=== PATIENT | female | born 1935 | race Caucasian/White ===

== ENCOUNTER 2016-06-24 10:46 | Outpatient (CLI) | payer MEDICARE ==
[~2016-06-24] VITALS: Ht 162.6 cm; Wt 76.8 kg
--- NOTE | ~2016-06-24 | HEMODYNAMI ---
PATIENT:CLYDE ANDERSON MEDICAL RECORD: [id number] : 39 LOCATION:[facility] ADMISSION DATE: 06/24/16 Generatedon:06/24/201615:53 Patient name: CLYDE ANDERSON Patient #: [id number] SSN: [id number] : 1935 Date of study: 06/24/2016 Page: Of Hemodynamic Procedure Report Patient Data Patient Demographics Procedure consent was obtained First Name: CLYDE Gender: Female Last Name: JUSTIN : 1935 Middle Initial: ADELA Age: 80 year(s) Patient #: [id number] Race: Ethnicity: or SSN: [id number] Additional ID: [id number] Contact details Address: [address] [place] [address] [facility] State: [place] City: [place] Zip code: [address] Admission Admission Data Admission Date: 06/24/2016 Admission Time: 10:46 Arrival Date: 06/24/2016 Arrival Time: 12:30 Admit Source: Other Insurance Payor: Medicare Height (in.): 64 BSA: 1.83 (m2) Height (cm.): 162.56 BMI: 29.18 (kg/m2) Weight (lbs.): 170 Weight (kg.): 77.11 Lab Results Lab Result Date: 06/24/2016 Lab Result Time: 0:00 Biochemistry Name Units Result Min Max BUN mg/dl 26 --(----)-* 7 18 Creatinine mg/dl 1.2 --(---*)-- 0.6 1.3 CBC Name Units Result Min Max Hemoglobin g/dl 14.8 --(-*--)-- 13.5 17.5 Procedure Procedure Types Cath Procedure Diagnostic Procedure [facility] w/Coronaries PCI Procedure Coronary Stent Initial Miscellaneous Procedures Moderate Sedation up to 15 minutes Procedure Description Procedure Date Procedure Date: 06/24/2016 Procedure Start Time: 15:34 Procedure End Time: 15:48 Procedure Staff Name Function Jostin Rosas MD Performing Physician Yanet Robles RT Scrub Deanna Otoole RN Nurse Scarlet Hooker RT Monitor Indication Angina Procedure Data Cath Procedure Fluoroscopy Diagnostic fluoroscopy Total fluoroscopy Time: 2.6 time: 2.6 min min Diagnostic fluoroscopy Total fluoroscopy dose: 458 dose: 458 mGy mGy Contrast Material Contrast Material Type Amount (ml) Isovue 370 82 Entry Location Entry Primary Successful Side Size Upsize Upsize Entry Closure Succes sful Closure Location (Fr) 1 (Fr) 2 (Fr) Remarks Device Remarks Femoral Right 5 Fr 6 Fr Vascade artery Short Closure System Estimated blood loss: 5 ml Diagnostic catheters Device Type Used For End Catheter Placement Cordis 5Fr Pigtail Multi-vessel Catheter (MP) Angiography Cordis 5Fr JL 4.0 Left Coronary Catheter (MP) Angiography Cordis 5Fr 3DRC Catheter Right Coronary (MP) Angiography Procedure Complications No complications Procedure Medications Medication Administration Route Dosage Oxygen NC 2 l/min Heparin Flush Bag added to field 2 bags (1000units/500ml NS) Lidocaine 2% added to field 20 Benadryl I.V. 50 mg Versed I.V. 1 mg Fentanyl I.V. 50 mcg Versed I.V. 1 mg Fentanyl I.V. 50 mcg Heparin Bolus I.V. 4000 units Hemodynamics Rest BSA: 1.83 (m2) HGB: 14.8 (g/dl) O2 Consumption: Estimated: 165.66 (ml/min) O2 Co nsumption indexed: Estimated:90.52 (ml/min/m) Heart Rate: 71 (bpm) Pressure Samples Time Site Value (mmHg) Purpose Heart Use Rate(bpm) 15:37 LV 103/29,37 Snapshot 70 Snapshots Pre Cath Intra NCS Post Cath Vital Signs Time Heart Resp SPO2 NIBP (mmHg) Rhythm Pain Sedation Rate (ipm) (%) Status Level (bpm) 15:30:48 70 16 100 134/69(114) NSR 0 (11) 10(A) , No pain 15:35:03 69 19 100 123/61(95) NSR 0 (11) 10(A) , No pain 15:39:11 68 16 86 126/69(106) NSR 0 (11) 9(A) , No pain 15:43:23 69 16 98 128/63(100) NSR 0 (11) 9(A) , No pain 15:47:37 70 16 98 122/60(96) NSR 0 (11) 9(A) , No pain Medications Time Medication Route Dose Verified Delivered Reason Notes Effectiveness by by 15:31:18 Oxygen NC 2 Jostin Deanna Per physician l/min Ralph Otoole RN 15:31:24 Heparin Flush added 2 Jostin Jostin used for Bag to bags Ralph Rosas MD procedure (1000units/500ml field NS) 15:31:30 Lidocaine 2% added 20ml Jostin Jostin used for to vial Ralph Rosas MD procedure field 15:31:37 Benadryl I.V. 50 mg Jostin Deanna Per physician Ralph Otoole RN 15:33:44 Versed I.V. 1 mg Jostin Deanna for sedation Ralph Otoole RN 15:33:49 Fentanyl I.V. 50 Jostin Deanna for sedation mcg Ralph Otoole RN 15:36:24 Versed I.V. 1 mg Jostin Deanna for sedation Ralph Otoole RN 15:36:26 Fentanyl I.V. 50 Jostin Deanna for sedation mcg Ralph Otoole RN 15:42:25 Heparin Bolus I.V. 4000 Jostin Deanna for dose units Ralph Otoole RN anticoagulation verified [facility] dr rosas Procedure Log Time Note 15:10:52 Deanna Otoole RN sent for patient. Start room use. 15:19:17 Informed consent obtained and on chart 15:20:05 Diagnostic Cath Status : Elective 15:21:39 Indication : Angina 15:22:06 Time tracking: Regular hours 15:22:14 Plan of Care:Hemodynamics will remain stable., Cardiac rhythm will remain stable., Comfort level will be maintained., Respiratory function will remain adequate., Patient/ family verbilizes understanding of procedure., Procedure tolerated without complication., Recovers from procedure without complications.. 15:22:28 Patient received from Outpatients to CCL 1 Alert and oriented. Tansferred to table in Supine position. 15:22:29 Warm blankets applied, and radha hugger turned on for patient comfort. 15:22:30 Correct patient and procedure confirmed by team. 15:22:30 ECG and BP/O2 sat monitors applied to patient. 15:29:40 Vital chart was started 15:30:21 Baseline sample Acquired. 15:30:33 H&P Date Dictated: 06/23/2016 Within 30 days and on chart., H&P Addendum completed by physician on day of procedure. (MUST COMPLETE FOR ALL OUTPATIENTS). 15:30:35 Pre-procedure instructions explained to patient. 15:30:35 Pre-op teaching completed and patient verbalized understanding. 15:30:36 Family in waiting room. 15:30:37 Patient NPO since Midnight. 15:31:06 Is the patient allergic to Iodine/contrast media? No. 15:31:07 Was the patient premedicated? No 15:31:08 Is patient on blood thinner?Yes 15:31:11 ACC The patient was administered the following blood thiners within the last 24 hours: ACCPlavix 15:31:14 Patient diabetic? No. 15:31:18 Oxygen 2 l/min NC was given by Deanna Otoole RN; Per physician; 15:31:20 Previous problem with sedation/anesthesia? No ? 15:31:22 Snore? No 15:31:23 Sleep apnea? No 15:31:24 Heparin Flush Bag (1000units/500ml NS) 2 bags added to field was given by Jostin Rosas MD; used for procedure; 15:31:24 Deviated septum? No 15:31:25 Opens mouth fully? Yes 15:31:26 Sticks out tongue? Yes 15:31:28 Airway obstruction? No ? 15:31:30 Lidocaine 2% 20ml vial added to field was given by Jostin Rosas MD; used for procedure; 15:31:30 Dentures? No ? 15:31:35 Pre procedure: right dorsailis pedis pulse 1+ Palpable, but thready & weak; easily obliterated 15:31:37 Benadryl 50 mg I.V. was given by Deanna Otoole RN; Per physician; 15:31:39 Patient pain scale 0/10 ?. 15:31:51 IV patent on arrival in left forearm with 0.9% NaCl at [facility]. 15:33:17 Lab Result : BUN 26 mg/dl 15:33:17 Lab Result : Creatinine 1.2 mg/dl 15:33:17 Lab Result : Hemoglobin 14.8 g/dl 15:33: Lab results completed and on chart. 15:33: Right groin area was prepped with chlora-prep and draped in sterile fashion 15:: Alarms reviewed by R. N. 15:: Sharps counted by scrub and verified by R.N. 15:33: Physician arrived 15:: --------ALL STOP TIME OUT------ 15:33: Final Timeout: patient, procedure, and site verified with staff and physician. All members of the team are in agreement. 15:33:31 Right groin site verified by team. 15:33:34 Physical assessment completed. ASA score P 2 - A patient with mild systemic disease as per Jostin Rosas MD. 15:33:37 Sedation plan: IV Moderate Sedation Versed, Fentanyl 15:33:41 Use device set Femoral Dx 15:33:42 Acist Syringe opened to sterile field. 15:33:43 Bag Decanter opened to sterile field. 15:33:43 Cardinal Cath Pack opened to sterile field. 15:33:44 Versed 1 mg I.V. was given by Deanna Otoole RN; for sedation; 15:33:44 Terumo 5Fr [place] Sheath opened to sterile field. 15:33:44 St Sharad 260cm J .035 wire opened to sterile field. 15:33:45 Acist Hand Control opened to sterile field. 15:33:45 Acist Manifold opened to sterile field. 15:33:46 Cordis Infinity 5Fr Multipack catheter opened to sterile field. 15:33:46 Tegaderm 4 x 4 opened to sterile field. 15:33:49 Fentanyl 50 mcg I.V. was given by Deanna Otoole RN; for sedation; 15:33:51 Procedure started. 15:33:51 Full Disclosure recording started 15:34:48 Local anesthetic to right femoral artery with Lidocaine 2% by Jostin Rosas MD.INITIAL ACCESS ONLY 15:35:47 A 5 Fr sheath was inserted into the Right Femoral artery 15:36:24 Versed 1 mg I.V. was given by Deanna Otoole RN; for sedation; 15:36:26 Fentanyl 50 mcg I.V. was given by Deanna Otoole RN; for sedation; 15:36:37 A Cordis 5Fr Pigtail Catheter (MP) was advanced over the wire and used for Multi-vessel Angiography. 15:37:08 LV hemodynamics recorded. 15:37:10 LV gram done using MARR 15:37:13 Injector settings: Ml/sec: 5, Volume: 15, 15:37:25 EF : 40 % 15:37:31 Catheter removed. 15:37:36 A Cordis 5Fr JL 4.0 Catheter (MP) was advanced over the wire and used for Left Coronary Angiography. 15:38:17 LCA angiography performed. 15:38:20 Injector settings: Ml/sec: 3, Volume: 6, 15:38:30 Patient Height : 162.56 inches 15:38:33 Patient Weight : 77.11 lbs 15:38:33 Admit Source: Other 15:38:39 Arrival Date: 06/24/2016 12:30:00 PM 15:38:48 Insurance Payor : Medicare 15:39:22 Catheter removed. 15:39:32 A Cordis 5Fr 3DRC Catheter (MP) was advanced over the wire and used for Right Coronary Angiography. 15:39:49 RCA angiography performed. 15:39:52 Injector settings: Ml/sec: 3, Volume: 6, 15:40:02 Catheter removed. 15:40:34 Medtronic Launcher 6Fr 3DRC guide catheter opened to sterile field. 15:40:35 Cerrato Whisper J 300cm 0.014 guide wire opened to sterile field. 15:40:36 emere BasixCompak Inflation Kit opened to sterile field. 15:40:36 Terumo 6Fr [place] Sheath opened to sterile field. 15:41:01 Sheath upsized to a 6 Fr Short. 15:41:08 6 Fr 3drc guide catheter was inserted over the wire 15:41:17 whisper wire advanced. 15:42:25 Heparin Bolus 4000 units I.V. was given by Deanna Otoole RN; for anticoagulation; dose verified [facility] rosas 15:44:29 Inflation Number: 1 A Promus Premier OTW 3.0 x 24 stent was prepped and advanced across the Mid RCA. The stent was deployed at 19 JAZIEL for 0:10 (min:sec). 15:45:16 Stent catheter was removed intact over wire. 15:45:16 Wire removed. 15:45:16 Guide catheter removed. 15:45:54 Vascade 6/7 Fr Closure Device opened to sterile field. 15:46:05 Sheath removed intact; hemostasis achieved with Vascade Closure System to the Right Femoral artery. 15:46:06 Procedure ended.(Physican Out) 15:47:00 Fluoroscopy time 02.60 minutes. 15:47:05 Fluoroscopy dose: 458 mGy 15:47:05 Flurop Dose total: 458 15:47:08 Contrast amount:Isovue 370 82ml. 15:47:09 Sharps counted by scrub and verified by R.N. 15:47:10 Insertion/operative site no bleeding no hematoma. 15:47:14 Post-op/insertion site Right Femoral artery dressed using a 4 x 4 and Tegaderm. 15:47:17 Post right femoral artery:stable 15:47:21 Post procedure rhythm: unchanged. 15:47:23 Estimated blood loss: 5 ml 15:47:25 Post procedure instruction explained to patient.Patient verbalizes understanding. 15:47:25 Patient needs reinforcement of post procedure teaching. 15:48:03 Procedure type changed to Cath procedure, Diagnostic procedure, LHC, LHC w/Coronaries, PCI procedure, Coronary Stent Initial, Miscellaneous Procedures, Moderate Sedation up to 15 minutes 15:48:04 Procedure and supply charges have been captured, reviewed, submitted and are correct. 15:48:08 Procedure Complication : No complications 15:48:11 Vital chart was stopped 15:48:12 See physician's report for complete and final results. 15:48:14 Report given to Outpatients. 15:48:17 Patient transfered to Outpatients with Stretcher. 15:48:19 Procedure ended. 15:48:19 Full Disclosure recording stopped 15:48:45 ACC-PCI Only Patient was given prescriptions, or instructed by Jostin Rosas MD to start/continue the following medications upon discharge: Plavix 15:48:46 End room use (Document Last) Intervention Summary Intervention Notes Time ActionType Lesion and Equipment Action# Pressure Duration Attributes Used 15:44:29 Place stent Mid RCA Promus 1 19 00:10 Premier OTW 3.0 x 24 stent Device Usage Item Name Manufacture Quantity Catalog Number Hospital Part Current Mini mal Lot# / Charge Number Stock Stock Serial# Code Acist Acist 1 [id number] 014347 006542 407730 20 Syringe Medical Systems Inc Bag Microtek 1 2002S 048579 22420 517695 5 Decanter Medical Inc. Cardinal Cardinal 1 [id number] 077187 60727 205817 5 Cath Pack Health Terumo 5Fr Terumo 1 [id number] 491936 141340 985903 [address] Sharad 1 246328 574487 120095 678749 30 260cm J .035 wire Acist Hand Acist 1 33394 055075 892598 080584 5 Control Medical Systems Inc Acist Acist 1 31007 004596 908756 783919 5 Manifold Medical Systems Inc Cordis Cardinal 1 [id number] 938788 81487 240203 30 Infinity Health 5Fr Multipack catheter Tegaderm 4 3M 1 1626W 740569 966707 542567 5 x 4 Cordis 5Fr Cardinal 1 310303 5 Pigtail Health Catheter (MP) Cordis 5Fr Cardinal 1 302627 5 JL 4.0 Health Catheter (MP) Cordis 5Fr Cardinal 1 963178 5 3DRC Health Catheter (MP) Medtronic Medtronic 1 [id number] 295088 439636 765174 1 Launcher 6Fr 3DRC guide catheter Cerrato Cerrato 1 [id number] 407165 779414 946604 5 Whisper J Vascular 300cm 0.014 guide wire [facility] 1 KV0055 203519 721613 103968 15 BasixCompak Medical Inflation Kit Terumo 6Fr Terumo 1 [id number] 047372 527319 731166 40 [place] Sheath Promus Collins 1 [id number] 957767 891632 5 [id number] [facility] Scientific 3.0 x 24 stent Vascade 6/7 Cardiva 1 [id number] 705769 898809 577282 5 Fr Closure Medical, Device Inc. Signature Audit Cartwright Stage Time Signature Unsigned Intra-Procedure 06/24/2016 Scarlet Hooker 3:53:39 PM RT(R) Signatures Monitor : Scarlet Hooker RT Signature : Date : Time : [facility] [address] [place] [address]
[~2016-06-24 10:46] MED LIST: AMBIEN10 MG PO; ARBINOXA4 MG/5 ML; BAYER CHEWABLE81 MG PO; BEPREVE10 ML; BEPREVE10 ML EACH EYE; BETAPACE 80 MG80 MG PO; COLACE100 MG PO; CORDARONE200 MG PO; COUMADIN5 MG PO; COUMADIN6 MG PO; ELAVIL25 MG; LANOXIN125 MCG PO; LEVAQUIN500 MG PO; LOPRESSOR50 MG PO; LORTAB 5/500 TA1 TA2 PO; MILK OF MAGNESI30 ML PO; MOBIC7.5 MG PO; MS CONTIN15 MG PO; NARCAN INJ0.4 MG/ML IV; NEURONTIN 300300 MG PO; NORCO 10/325 TA1 TA1 PO; ONDANSETRON4 MG/2 M3 IV; PALGIC; PALGIC PO; PLAVIX75 MG PO; TYLENOL325 MG PO; ZOCOR20 MG PO; ZOFRAN4 MG PO
[2016-06-24 12:51] LABS: BASOPHILS 0.3 % (0.0-2.0); EOSINOPHILS 9.3 % (0-7); HEMATOCRIT 43.7 % (36.0-48.0); HEMOGLOBIN 14.8 g/dL (12-16); IMMATURE GRANULOCYTES 0.3 % (0-5); LYMPHOCYTES 27.9 % (15-50); MCH 30.7 pg (26.0-34.0); MCHC 33.9 g/dL (31.0-37.0); MCV 90.7 fL (80.0-100.0); NEUTROPHILS 51.2 % (40-80); PLATELET COUNT 322 10x3/uL (130-400); RBC 4.82 10x6/uL (4.00-5.40); RDW 13.6 % (11.5-14.5)
[2016-06-24 13:02] LABS: ANION GAP 14.5 mmol/L (8-16); CALCIUM 9.4 mg/dL (8.5-10.1); CARBON DIOXIDE 29.4 mmol/L (21.0-32.0); CREATININE - SERUM 1.2 mg/dL (0.6-1.3); POTASSIUM - SERUM 3.9 mmol/L (3.5-5.1)
[2016-06-24] MEDS ORDERED: RYTHMOL SR225 MG PO (13:47)
[2016-06-24] MEDS ORDERED: PLAVIX75 MG PO (13:48)
[2016-06-24] MEDS ORDERED: HYDROCHLOROTH12.5 M1 PO (13:49)
[2016-06-24 13:55] VITALS: BP 147/75; Ht 162.6 cm; Wt 76.8 kg
--- NOTE | 2016-06-24 18:27 | NUR ---
1600 BACK FROM HEART CATH STENT,VERY DROWSY RESP NONLABORED O2 TO 2L N/C, RT GROIN DRESSING C/D/I PPX2 WEAK RT.
--- NOTE | 2016-06-24 18:35 | NUR ---
1700 STILL SLEEPY RESP NONLABORED O2 2L N/C ROUSES EASILY.
--- NOTE | 2016-06-24 18:43 | NUR ---
1800 WAKING UP RESP NONLABORED. ASSOSTED WITH SANDWICH, AND REMINDED TO KEEP RT LEG STRAIGHT.
--- NOTE | 2016-06-24 20:21 | NUR ---
1910 RESTING BUT TALKS SOME RESP NONLABORED. RT GROIN NO BLEEDING.
--- NOTE | 2016-06-24 20:25 | NUR ---
1999 IV DCD CATHETER INTACT. WENT OVER DISCHARGE INSTRUCTIONS. UP TO THE BR WITH ASSISTANCE AND VOIDED. SCTRIPT GIVEN, WENT OVER FOLLOWUP APPOINTMENT, POST CATH INSTRUCTIONS GONE OVER AND VERBALLY UNDERSTANDS.
--- NOTE | 2016-06-24 20:26 | NUR ---
2024 TO HOME VIA W/C WITH SPOUSE.
--- NOTE | 2016-06-30 13:59 | OP ---
PATIENT NAME: CLYDE ANDERSON MEDICAL RECORD: [id number] :39 LOCATION:D.CAT ADMISSION DATE: SURGEON: WADE WOODWARD MD DATE OF OPERATION: 06/24/2016 PROCEDURES: 1. PTCA stent RCA. 2. Left heart catheterization. 3. Selective coronary angiography. 4. Left ventriculogram. INDICATION: Angina and coronary artery disease. PROCEDURE IN DETAIL: After informed consent was obtained and after a detailed explanation of the risks, benefits as well as alternative therapies, the patient elected to proceed with angiogram and angioplasty. The right femoral area was prepped and draped in normal sterile fashion. The right femoral artery was cannulated via modified Seldinger technique with placement of 6-Setswana sheath. All catheters exchanged through this sheath. FINDINGS: The left ventriculogram was performed in the standard 30-degree MARR view reveals global hypokinesis throughout all segments. Overall ejection fraction 40%. SELECTIVE CORONARY ANGIOGRAPHY: 1. Left main has no significant angiographic disease. 2. Left anterior descending has moderate irregularities, but no flow-limiting stenosis. Previously placed stents are widely patent. 3. Left circumflex shows moderate irregularities, but no flow-limiting stenosis. 4. The right coronary has previously placed stents. There is up to 75% in-stent restenosis in the mid vessel. PTCA STENT OF THE RIGHT CORONARY: The stent used was 3.0 x 24 mm Promus taken to 19 atmospheres. Result was 0% residual stenosis. OVERALL IMPRESSION: Successful percutaneous transluminal coronary angioplasty stent of the right coronary artery for in-stent restenosis up to 75% to 0% residual stenosis. TRANSINT:[id number] Voice Confirmation ID: [id number] DOCUMENT ID: [id number] WADE WOODWARD MD at 1359 CC: [id number] DICTATION DATE: 06/24/16 1548 POSTER: 06/24/162023 [facility] CLI 06/24/[address] [address]
== END 2016-06-24 20:25 | disposition home or self-care (01) ==
LOC: D.CATH 10:46
PROVIDERS: Internal Medicine Interventional Cardiology
DX: I25.119 Atherosclerotic heart disease of native coronary artery with unspecified angina pectoris (principal); T82.855A Stenosis of coronary artery stent, initial encounter

== ENCOUNTER 2018-04-04 13:58 | Observation (INO) | payer MEDICARE ==
[~2018-04-04] VITALS: Ht 162.6 cm; Wt 69.5 kg
--- NOTE | ~2018-04-04 | MORECARE ---
CASE MANAGEMENT DISCHARGE SUMMARY PATIENT: CLYDE ANDERSON UNIT: [id number] ADM DATE: 04/04/18 AGE: 82 : 39 SEX: F ROOM/BED: D.2121 AUTHOR: MANNY THOMAS PHYSICIAN: REFERRING PHYSICIAN: MAAME CASILLAS MD DATE OF SERVICE: 04/06/18 Discharge Plan Patient Name: CLYDE ANDERSON Facility: [facility]:[place] : 1935 Planned Disposition: Home Anticipated Discharge Date: 04/06/18 Discharge Date: Expected LOS: 2 Initial Reviewer: [email or web address] Initial Review Date: 04/06/2018 Generated: 04/06/18 6:30 pm Coverage Notice Reviewer: [email or web address] Elsie Mcbride Notice Issued Date-Time: 04/05/2018 17:30 Notice Type: Medicare Outpatient Observation Notice Notice Delivered To: Patient 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 ANETTE ANDERSON SIGNED THE CEDEÑO AT THE PATIENTS REQUEST. I ASKED FOR ANETTE'S ACTUAL NAME, AND HE STATED THAT THERE IS NO NAME, JUST TWO INITIALS. Patient Name: CLYDE ANDERSON Page [phone] at 1730 All edits/amendments must be made on the electronic document DICTATION DATE: 04/06/181729 DEVELOPMENT TECHNICAL LEAD: CRISTAL 04/06/181729 RPT#: [id number] DC DATE: STATUS: ADM IN [facility] [address] [place] [address] END OF REPORT
--- NOTE | ~2018-04-04 | OP ---
PATIENT NAME: CLYDE ANDERSON MEDICAL RECORD: [id number] :39 LOCATION:D.M2 D.2121 ADMISSION DATE:04/04/18 SURGEON: WADE WOODWARD MD DATE OF OPERATION: 04/06/2018 PROCEDURES: 1. PTCA of LAD. 2. PTCA of LAD diagonal. 3. Selective coronary angiography. INDICATION: Angina and coronary artery disease. PROCEDURE IN DETAIL: After informed consent was obtained and after a detailed description of the risks, benefits as well as alternative therapies, the patient elected to proceed with the angiogram and angioplasty. The left femoral area was prepped and draped in normal sterile fashion. Left femoral artery was cannulated via modified Seldinger technique with placement of 7-Cameroonian sheath. All catheters exchanged through this sheath. FINDINGS: The left anterior descending has previously placed stent. There is an area in the proximal aspect that appears to be greater than 70% stenosed with in-stent restenosis, this was addressed with a 3.0 balloon. There was a non-grafted diagonal that has multiple areas of 90% stenosis. Diagonal takes off at a very angulated segment and it comes off in stent struts. We were able to get a 1.5 balloon through this followed by a 2.0 balloon. We ballooned the diagonal with these, stent would not cross secondary to the stent struts being there and the extreme angulation, but it was an excellent balloon result. OVERALL IMPRESSION: Successful percutaneous transluminal coronary angioplasty of the left anterior descending and diagonal, both going from 70% to 90% initial stenosis to 0% residual. TRANSINT:[id number] Voice Confirmation ID: [id number] DOCUMENT ID: [id number] WADE WOODWARD MD at 1856 CC: [id number] DICTATION DATE: 04/06/18 1453 PLASTIC FINISHER: 04/06/18 1705 ADM IN [place] [address] [place] [address]
--- NOTE | ~2018-04-04 | CN ---
PATIENT NAME:CLYDE DE JESUS MEDICAL RECORD: [id number] : 39 LOCATION:D. D.2121 ADMIT DATE: 04/04/18 ACCOUNT: [id number] CONSULTING PHYSICIAN: WADE WOODWARD MD REFERRING PHYSICIAN: MAAME CASILLAS MD DATE OF CONSULTATION: 04/05/2018 DIAGNOSES: 1. Non-Q-wave myocardial infarction. 2. Coronary artery disease. 3. Previous percutaneous transluminal coronary angioplasty stent. 4. Paroxysmal atrial fibrillation. 5. Hyperlipidemia. HISTORY OF PRESENT ILLNESS: Mrs. De Jesus presents with chest pain and chest pain just started yesterday. She does have a history of coronary artery disease. Last cardiac intervention, 07/08. She has not had any further episodes of chest pain. Her troponin is positive for non-Q-wave myocardial infarction. Her EKG is with no acute changes. PHYSICAL EXAMINATION: GENERAL APPEARANCE: Well-nourished, well-developed, appears stated age. Level of distress, comfortable. PSYCHIATRIC: Mental status, alert, normal affect. Orientation, oriented to time, place and person. EYES: Lids and conjunctiva, noninjected. No discharge, no pallor. ENT: Lips, teeth, gums, normal dentition. Oropharynx, no cyanosis, no pallor. NECK: Carotid arteries, bilateral normal upstroke, no bruits, no thrills. JUGULAR VEINS: No jugular venous pressure or distention. CERVICAL LYMPH NODES: Nontender, nonenlarged. THYROID: Not enlarged. Nontender. No nodules. LUNGS: Respiratory effort, unlabored. CHEST: Normal curvature. No thoracic deformity. No chest wall tenderness. Percussion, resonant. Auscultation, clear. No wheezes, no rales, no rhonchi. CARDIOVASCULAR: Precordial exam, nondisplaced. No heaves or pericardial thrills. Rate and rhythm, regular. Heart sounds, normal S1, normal S2. No S3, no gallop, no rub. Systolic murmur, not heard. Diastolic murmur, not heard. EXTREMITIES: No cyanosis, no edema. Peripheral pulses, full and equal in all extremities, except as noted. No bruits appreciated. ABDOMEN: Soft, nondistended. Normal aorta. No bruit. Nontender. No masses. Liver, nontender, no hepatomegaly. Spleen, nontender, no splenomegaly. MUSCULOSKELETAL: No joint tenderness. No joint swelling. No erythema. NEUROLOGICAL: Normal gait, normal strength, normal tone. SKIN: Warm and dry. OVERALL IMPRESSION: Non-Q-wave myocardial infarction. We will proceed with coronary angiography. Further care depends upon findings of the angiography. SHE IS INTOLERANT TO STATINS and her heart rate is relatively bradycardic, hence at this time will not start a beta hao or a statin, but we will continue the aspirin and Plavix. TRANSINT:[id number] Voice Confirmation ID: [id number] DOCUMENT ID: [id number] CONSULT REPORT [id number] CLYDE DE JESUS, WADE RAUSCH at 1856 CC: [id number] DICTATION DATE: 04/05/18804 [employer] [employer] [facility]: 04/05/18822 ADM IN [place] [id number] [place] [id number]
--- NOTE | ~2018-04-04 | HEMODYNAMI ---
PATIENT:CLYDE ANDERSON MEDICAL RECORD: [id number] : 39 [facility] ADMISSION DATE: 04/04/18 Generatedon:04/06/201814:59 Patient name: CLYDE ANDERSON Patient #: [id number] SSN: [id number] : 1935 Date of study: 04/06/2018 Page: Of Hemodynamic Procedure Report Patient Data Patient Demographics Procedure consent was obtained First Name: CLYDE Gender: Female Last Name: JUSTIN : 1935 [facility] Initial: ADELA Age: 82 year(s) Patient #: [id number] Race: Ethnicity: or SSN: [id number] Additional ID: [id number] Contact details Address: [address] [place] [address] [facility] State: [place] City: [place] Zip code: [address] Admission Admission Data Admission Date: 04/04/2018 Admission Time: 16:21 Room #: D.2121 Procedure Procedure Types Cath Procedure Diagnostic Procedure Sedation Charges Moderate Sedation up to 15 minutes PCI Procedure PTCA PTCA Initial PTCA Additional Procedure Description Procedure Date Procedure Date: 04/06/2018 Procedure Start Time: 14:34 Procedure End Time: 14:52 Procedure Staff Name Function Jostin Rosas MD Performing Physician Scarlet Hooker RT Monitor Yanet Robles RT Scrub Elizabeth Sharif RN Nurse Procedure Data Cath Procedure Fluoroscopy Diagnostic fluoroscopy Total fluoroscopy Time: 7.1 time: 7.1 min min Diagnostic fluoroscopy Total fluoroscopy dose: 443 dose: 443 mGy mGy Contrast Material Contrast Material Type Amount (ml) Isovue 300 70 Entry Location Entry Primary Successful Side Size Upsize Upsize Entry Closure Succes sful Closure Location (Fr) 1 (Fr) 2 (Fr) Remarks Device Remarks Femoral Left 7 Fr Exoseal artery Short Estimated blood loss: 5 ml Procedure Complications No complications Procedure Medications Medication Administration Route Dosage Oxygen etCO2 Nasal cannula 2 l/min Lidocaine 2% added to field 20 Heparin Flush Bag added to field 2 bags (1000units/500ml NS) 0.9% NaCl I.V. 100 ml/hr Versed I.V. 1 mg Fentanyl I.V. 50 mcg Heparin Bolus I.V. 4000 units Fentanyl I.V. 50 mcg Hemodynamics Rest Heart Rate: 71 (bpm) Snapshots Pre Cath Intra NCS Post Cath Vital Signs Time Heart Resp SPO2 etCO2 NIBP (mmHg) Rhythm Pain Sedation Rate (ipm) (%) (mmHg) Status Level (bpm) 14:22:18 77 16 96 0 124/68(97) NSR 0 (11) 10(A) , No pain 14:26:34 69 20 96 0 103/59(77) NSR 0 (11) 10(A) , No pain 14:30:42 69 12 97 0 115/63(99) NSR 0 (11) 10(A) , No pain 14:34:56 69 19 96 33 110/58(88) NSR 0 (11) 9(A) , No pain 14:39:08 69 13 94 39.8 105/58(85) NSR 0 (11) 9(A) , No pain 14:43:18 69 15 93 36.8 112/54(79) NSR 0 (11) 9(A) , No pain 14:47:30 69 23 94 38.3 104/59(86) NSR 0 (11) 9(A) , No pain 14:51:38 69 11 98 0.7 124/65(104) NSR 0 (11) 10(A) , No pain Medications Time Medication Route Dose Verified Delivered Reason Notes Effectiveness by by 14:23:02 Oxygen etCO2 2 Jostin Johnson used for Nasal l/min Ralph Sharif RN procedure cannula 14:23:08 Lidocaine 2% added 20ml Jostin Frankel for local to vial Ralph Rosas MD anesthetic field 14:23:15 Heparin Flush added 2 Jostin Frankel used for Bag to bags Ralph Rosas MD procedure (1000units/500ml field NS) 14:23:23 0.9% NaCl I.V. 100 Jostinmarcus Gandaraie Per physician ml/hr Ralph Sharif RN 14:32:05 Versed I.V. 1 mg Jostin Johnson for sedation Ralph Sharif RN 14:32:12 Fentanyl I.V. 50 Jostin Johnson for sedation mcg Ralph Sharif RN 14:34:33 Heparin Bolus I.V. 4000 Jostin Johnson for verif ied units Ralph Sharif RN anticoagulation with dr rosas 14:40:00 Fentanyl I.V. 50 Jostin Johnson for sedation mcg Ralph Sharif RN Procedure Log Time Note 14:05:20 Informed consent obtained and on chart 14:05:26 Diagnostic Cath Status : Elective 14:05:56 Yanet Robles RT(R) sent for patient. Start room use. 14:05:57 Time tracking: Regular hours (M-F 7:00 - 5:00) 14:07:33 Plan of Care:Hemodynamics will remain stable., Cardiac rhythm will remain stable., Comfort level will be maintained., Respiratory function will remain adequate., Patient/ family verbilizes understanding of procedure., Procedure tolerated without complication., Recovers from procedure without complications.. 14:20:30 Patient received from Med II to CCL 2 Alert and oriented. Tansferred to table in Supine position. 14:20:31 Warm blankets applied, and radha hugger turned on for patient comfort. 14:20:32 ECG and BP/O2 sat monitors applied to patient. 14:20:33 Correct patient and procedure confirmed by team. 14:21:14 Baseline sample Acquired. 14:21:14 Vital chart was started 14:21:23 Full Disclosure recording started 14:23:02 Oxygen 2 l/min etCO2 Nasal cannula was administered by Elizabeth Sharif RN; used for procedure; 14:23:08 Lidocaine 2% 20ml vial added to field was administered by Jostin Rosas MD; for local anesthetic; 14:23:15 Heparin Flush Bag (1000units/500ml NS) 2 bags added to field was administered by Jostin Rosas MD; used for procedure; 14:23:20 Baseline sample Acquired. 14:23:23 0.9% NaCl 100 ml/hr I.V. was administered by Elizabeth Sharif RN; Per physician; 14:28:47 H&P Date Dictated: 04/06/2018 Within 30 days and on chart.. 14:28:51 Pre-procedure instructions explained to patient. 14:28:52 Pre-op teaching completed and patient verbalized understanding. 14:28:53 Family in waiting room. 14:28:55 Patient NPO since Midnight. 14:28:57 Is the patient allergic to Iodine/contrast media? No. 14::58 Was the patient premedicated? No 14:29:00 Is patient on blood thinner?Yes 14:29:03 ACC The patient was administered the following blood thiners within the last 24 hours: ACCPlavix 14:31:15 Patient diabetic? No. 14:31:18 Previous problem with sedation/anesthesia? No ? 14:31:23 Snore? No 14:31:24 Sleep apnea? No 14:31:25 Deviated septum? No 14:31:26 Opens mouth fully? Yes 14:31:27 Sticks out tongue? Yes 14:31:28 Airway obstruction? No ? 14:31:31 Dentures? No ? 14:31:34 Pre procedure: right dorsailis pedis pulse 2+ Normal; easily identifiable; not easily obliterated 14:31:36 Pre procedure: left dorsailis pedis pulse 2+ Normal; easily identifiable; not easily obliterated 14:31:38 Patient pain scale 0/10 ?. 14:31:42 IV patent on arrival in left forearm with 0.9% NaCl at [facility]. 14:31:45 Lab results completed and on chart. 14:31:49 Left groin area was prepped with chlora-prep and draped in sterile fashion 14:31:50 Alarms reviewed by R. N. 14:31:50 Sharps counted by scrub and verified by R.N. 14:31:52 Physician arrived 14:31:52 --------ALL STOP TIME OUT------ 14:31:53 Final Timeout: patient, procedure, and site verified with staff and physician. All members of the team are in agreement. 14:31:55 Left groin site verified by team. 14:31:58 Physical assessment completed. ASA score P 2 - A patient with mild systemic disease as per Jostin Rosas MD. 14:32:01 Sedation plan: IV Moderate Sedation Medication:Versed, Fentanyl 14:32:05 Versed 1 mg I.V. was administered by Elizabeth Sharif RN; for sedation; 14:32:12 Fentanyl 50 mcg I.V. was administered by Elizabeth Sharif RN; for sedation; 14:32:13 Use device set Femoral Dx 14:32:14 ACIST Syringe (07521) opened to sterile field. 14:32:14 Bag Decanter (2002S) opened to sterile field. 14:32:15 Medline Cath Pack ([id number]) opened to sterile field. 14:32:16 DIAGNOSTIC WIRE .035 260cm J wire ([id number]) opened to sterile field. 14:32:17 ACIST Hand Control (44996) opened to sterile field. 14:32:17 ACIST Manifold (31196) opened to sterile field. 14:32:22 Tegaderm 4 x 4 (1626W) opened to sterile field. 14:33:02 SHEATH 7FR [place] (LPF280) opened to sterile field. 14:33:02 INFLATOR Merit BasixCompak (OJ4560) opened to sterile field. 14:34:01 Procedure started. 14:34:05 Local anesthetic to left femerol artery with Lidocaine 2% by Jostin Rosas MD.INITIAL ACCESS ONLY 14:34:18 A 7 Fr Short sheath was inserted into the Left Femoral artery 14:34:32 GUIDE 7FR EBU 3.5 catheter ([id number]) opened to sterile field. 14:34:33 Heparin Bolus 4000 units I.V. was administered by Elizabeth Sharif RN; for anticoagulation; verified with dr rosas 14:34:40 7 Fr ebu 3.5 guide catheter was inserted over the wire 14:34:46 fielder wire advanced. 14:35:29 FIELDER XT J 300cm guide wire ([id number]) opened to sterile field. 14:37:31 Inflate balloon Inflation number: 1 A EMERGE OTW 1.5 x 15 balloon ([id number]) was prepped and advanced across the 1st Diag, then inflated to 21 JAZIEL for 0:10 (min:sec). 14:37:42 Inflation number: 2 The EMERGE OTW 1.5 x 15 balloon ([id number]) was reinflated across the 1st Diag, to 21 JAZIEL for 0:10 (min:sec). 14:37:57 Inflation number: 3 The EMERGE OTW 1.5 x 15 balloon ([id number]) was reinflated across the 1st Diag, to 21 JAZIEL for 0:10 (min:sec). 14:38:12 Inflation number: 4 The EMERGE OTW 1.5 x 15 balloon ([id number]) was reinflated across the 1st Diag, to 21 JAZIEL for 0:10 (min:sec). 14:38:35 Balloon removed over the wire. 14:38:49 Baseline sample Acquired. 14:40:00 Fentanyl 50 mcg I.V. was administered by Elizabeth Sharif RN; for sedation; 14:40:01 Inflate balloon Inflation number: 5 A EMERGE OTW 2.0 x 20 balloon ([id number]) was prepped and advanced across the 1st Diag, then inflated to 13 JAZIEL for 0:10 (min:sec). 14:40:14 Inflation number: 6 The EMERGE OTW 2.0 x 20 balloon ([id number]) was reinflated across the 1st Diag, to 13 JAZIEL for 0:10 (min:sec). 14:40:31 Inflation number: 7 The EMERGE OTW 2.0 x 20 balloon ([id number]) was reinflated across the 1st Diag, to 21 JAZIEL for 0:10 (min:sec). 14:40:48 Inflation number: 8 The EMERGE OTW 2.0 x 20 balloon ([id number]) was reinflated across the 1st Diag, to 21 JAZIEL for 0:10 (min:sec). 14:42:09 Balloon removed over the wire. 14:44:19 The FRANK RX 2.0 x 18 stent ([id number]) was advanced then removed because of failure to cross lesion 14:45:31 CHOICE PT Extra Support 182cm wire ([id number]) opened to sterile field. 14:46:10 Wire removed. 14:46:14 choice pt wire advanced. 14:47:12 Inflate balloon Inflation number: 9 A EUPHORA 3.0 x 15 Balloon ([id number]) was prepped and advanced across the 1st Diag, then inflated to 15 JAZIEL for 0:10 (min:sec). 14:47:27 Inflation number: 1 The EUPHORA 3.0 x 15 Balloon ([id number]) was reinflated across the Prox LAD, to 17 JAZIEL for 0:10 (min:sec). 14:49:04 Balloon removed over the wire. 14:49:08 Wire removed. 14:49:09 Guide catheter removed. 14:49:19 EXOSEAL 7Fr (EX700) opened to sterile field. 14:49:28 Sheath removed intact; hemostasis achieved with Exoseal to the Left Femoral artery. 14:49:30 Procedure ended.(Physican Out) 14:50:57 Fluoroscopy time 07.10 minutes. 14:51:01 Flurop Dose total: 443 14:51:01 Fluoroscopy dose: 443 mGy 14:51:05 Contrast amount:Isovue 300 70ml. 14:51:12 Sharps counted by scrub and verified by R.N. 14:51:14 Insertion/operative site no bleeding no hematoma. 14:51:16 Post-op/insertion site Left Femoral artery dressed using a 4 x 4 and Tegaderm. 14:51:20 Post left femerol artery:stable 14:51:25 Post procedure rhythm: unchanged. 14:51:28 Estimated blood loss: 5 ml 14:51:29 Post procedure instruction explained to patient.Patient verbalizes understanding. 14:51:30 Patient needs reinforcement of post procedure teaching. 14:52:06 Procedure type changed to Cath procedure, Diagnostic procedure, Sedation Charges, Moderate Sedation up to 15 minutes, PCI procedure, PTCA, PTCA Initial, PTCA Additional 14:52:07 Procedure and supply charges have been captured, reviewed, submitted and are correct. 14:52:12 Procedure Complication : No complications 14:52:14 Vital chart was stopped 14:52:14 See physician's report for complete and final results. 14:52:19 Report given to [facility]. 14:52:22 Patient transfered to [facility] with Stretcher. 14:52:24 Procedure ended. 14:52:24 Full Disclosure recording stopped 14:52:41 ACC-PCI Only Patient was given prescriptions, or instructed by Jostin Rosas MD to start/continue the following medications upon discharge: Plavix 14:52:43 End room use (Document Last) Intervention Summary Intervention Notes Time ActionType Lesion and Equipment Used Action# Pressure Duration Attributes 14:37:31 Inflate 1st Diag EMERGE OTW 1.5 1 21 00:10 balloon x 15 balloon ([id number]) 14:37:42 Reinflate 1st Diag EMERGE OTW 1.5 2 21 00:10 balloon x 15 balloon ([id number]) 14:37:57 Reinflate 1st Diag EMERGE OTW 1.5 3 21 00:10 balloon x 15 balloon ([id number]) 14:38:12 Reinflate 1st Diag EMERGE OTW 1.5 4 21 00:10 balloon x 15 balloon ([id number]) 14:40:01 Inflate 1st Diag EMERGE OTW 2.0 5 13 00:10 balloon x 20 balloon ([id number]) 14:40:14 Reinflate 1st Diag EMERGE OTW 2.0 6 13 00:10 balloon x 20 balloon ([id number]) 14:40:31 Reinflate 1st Diag EMERGE OTW 2.0 7 21 00:10 balloon x 20 balloon ([id number]) 14:40:48 Reinflate 1st Diag EMERGE OTW 2.0 8 21 00:10 balloon x 20 balloon ([id number]) 14:44:19 Discard FRANK RX 2.0 x Stent 18 stent ([id number]) 14:47:12 Inflate 1st Diag EUPHORA 3.0 x 9 15 00:10 balloon 15 Balloon ([id number]) 14:47:27 Reinflate Prox LAD EUPHORA 3.0 x 1 17 00:10 balloon 15 Balloon ([id number]) Device Usage Item Name Manufacture Quantity Catalog Number Hospital Part Current Minimal Lot# / Charge Number Stock Stock Serial# Code ACIST Syringe Acist 1 40982 005889 497369 232057 20 (10091) Medical Systems Inc Bag Decanter Microtek 1 2001S 627768 82063 830220 5 (2001S) Medical Inc. Medline Cath Medline 1 [id number] 212542 09438 875477 5 Pack ([id number]) DIAGNOSTIC St Sharad 1 512654 174974 906297 442390 30 WIRE .035 260cm J wire (049666) ACIST Hand Acist 1 66101 594463 300775 418107 5 Control Medical (83996) Systems Inc ACIST Manifold Acist 1 98013 970014 665441 124520 5 (09379) Medical Systems Inc Tegaderm 4 x 4 3M 1 1626W 569395 985974 313999 5 (1626W) SHEATH 7FR Terumo 1 ZBB621 087885 013505 200877 5 [place] (SSU486) INFLATOR Merit Merit 1 OO6221 984557 551359 653258 15 [facility] (KR1442) GUIDE 7FR EBU Medtronic 1 [id number] 575232 678124 501755 0 3.5 catheter ([id number]) FIELDER XT J Cerrato 1 [id number] 099022 304393 050418 5 300cm guide Vascular wire ([id number]) EMERGE OTW 1.5 [place] 1 [id number] 088426 951000 646939 5 [id number] x 15 balloon Scientific ([id number]) EMERGE OTW 2.0 [place] 1 [id number] 113742 145062 762734 5 [id number] x 20 balloon Scientific ([id number]) FRANK RX 2.0 x Medtronic 1 [id number] 516291 5380045 718349 5 [id number] 18 stent ([id number]) CHOICE PT [place]ahoma 1 [id number] 916995 014068 395159 5 Extra Support Scientific 182cm wire ([id number]) EUPHORA 3.0 x Medtronic 1 [id number] 698142 809673 035231 5 [id number] 15 Balloon ([id number]) EXOSEAL 7Fr Cardinal 1 EX700 031472 996940 517369 5 (EX700) Health Signature Audit [place] Stage Time Signature Unsigned Intra-Procedure 04/06/2018 Scarlet Hooker 2:59:44 PM RT(R) Signatures Monitor : Scarlet Hooker RT Signature : Date : Time : [facility] [address] [address]
--- NOTE | ~2018-04-04 | OP ---
PATIENT NAME: CLYDE ANDERSON MEDICAL RECORD: [id number] :39 LOCATION:D.M2 D.2121 ADMISSION DATE:04/04/18 SURGEON: WADE WOODWARD MD DATE OF OPERATION: 04/05/2018 PROCEDURES: 1. PTCA and stent, RCA. 2. Intravascular ultrasound. 3. Left heart catheterization. 4. Selective coronary angiography. 5. Left ventriculogram. INDICATION: Unstable angina, acute coronary syndrome. PROCEDURE IN DETAIL: After informed consent was obtained with detailed description of risks and benefits as well as alternative therapies, the patient elected to proceed with angiogram and angioplasty. The right femoral area was prepped and draped in normal sterile fashion. The right femoral artery was cannulated via modified Seldinger technique with placement of 7-Sami sheath. All catheters were exchanged through the sheath. FINDINGS: The left ventriculogram performed in standard 30-degree MARR view reveals global hypokinesis throughout all segments. Overall ejection fraction estimated at 40%. SELECTIVE CORONARY ANGIOGRAPHY: 1. Left main is with no significant angiographic disease. 2. Left anterior descending has previously placed stents. The stents are widely patent; however, there is a very large diagonal system that has 95% stenosis. 3. Left circumflex is very small and diffusely diseased, but no discrete flow-limiting stenosis. 4. Right coronary has previously placed stents. These are widely patent; however, there is a new 80% stenosis, confirmed by intravascular ultrasound proximally. PTCA AND STENT OF THE RCA: The stent used was 2.75 x 15-mm Augie, taken to 21 atmospheres. Result was 0% residual stenosis. OVERALL IMPRESSION: Successful PTCA and stent of the RCA going from 80% initial stenosis to 0% residual. PLAN: PTCA and stent of the LAD diagonal in the near future. TRANSINT:[id number] Voice Confirmation ID: [id number] DOCUMENT ID: [id number] WADE WOODWARD MD at 1856 CC: [id number] DICTATION DATE: 04/05/18 1538 TILE AND MOTTLE SUPERVISOR: 04/05/18 1909 ADM IN [facility] [address] [place] [address]
--- NOTE | ~2018-04-04 | HEMODYNAMI ---
PATIENT:CLYDE ANDERSON MEDICAL RECORD: [id number] : 39 [id number] ADMISSION DATE: 04/04/18 Generatedon:04/05/201813:50 Patient name: CLYDE ANDERSON Patient #: [id number] SSN: [id number] : 1935 Date of study: 04/05/2018 Page: Of Hemodynamic Procedure Report Patient Data Patient Demographics Procedure consent was obtained First Name: CLYDE Gender: Female Last Name: JUSTIN : 1935 [facility] Initial: ADELA Age: 82 year(s) Patient #: [id number] Race: Ethnicity: or SSN: [id number] Additional ID: [id number] Contact details Address: [address] [place] [address] [facility] State: [place] City: [place] Zip code: [address] Admission Admission Data Admission Date: 04/04/2018 Admission Time: 16:21 Room #: D.2121 Procedure Procedure Types Cath Procedure Diagnostic Procedure LHC LH w/Coronaries FFR/IVUS Intra-Coronary IVUS Initial Sedation Charges Moderate Sedation up to 30 minutes PCI Procedure Coronary Stent Coronary Stent Initial Procedure Description Procedure Date Procedure Date: 04/05/2018 Procedure Start Time: 13:17 Procedure End Time: 13:50 Procedure Staff Name Function Jostin Rosas MD Performing Physician Fifi Pinto RT Monitor Axel Tyson RN Nurse Brigido Miramontes RT Scrub Procedure Data Cath Procedure Fluoroscopy Diagnostic fluoroscopy Total fluoroscopy Time: 9.9 time: 9.9 min min Diagnostic fluoroscopy Total fluoroscopy dose: 293 dose: 293 mGy mGy Contrast Material Contrast Material Type Amount (ml) Isovue 300 115 Entry Location Entry Primary Successful Side Size Upsize Upsize Entry Closure Succes sful Closure Location (Fr) 1 (Fr) 2 (Fr) Remarks Device Remarks Femoral Right 5 Fr 6 Fr 7 Fr Exoseal artery Short Short Estimated blood loss: 10 ml Diagnostic catheters Device Type Used For End Catheter Placement MULTIPACK Pigtail 5 Fr LV Angiography catheter MULTIPACK JL 4.0 5Fr Left Coronary catheter Angiography MULTIPACK 3DRC 5Fr Right Coronary catheter Angiography Procedure Complications No complications Procedure Medications Medication Administration Route Dosage Oxygen etCO2 Nasal cannula 2 l/min Heparin Flush Bag added to field 2 bags (1000units/500ml NS) 0.9% NaCl I.V. 100 ml/hr Fentanyl I.V. 50 mcg Versed I.V. 1 mg Fentanyl I.V. 50 mcg Versed I.V. 1 mg Heparin Bolus I.V. 4000 units Hemodynamics Rest Heart Rate: 72 (bpm) Snapshots Pre Cath Intra NCS Post Cath Vital Signs Time Heart Resp SPO2 etCO2 NIBP Rhythm Pain Sedation Rate (ipm) (%) (mmHg) (mmHg) Status Level (bpm) 12:59:26 70 17 98 0 129/69(97) NSR 0 (11) 10(A) , No pain 13:03:50 70 17 94 38.3 105/65(86) NSR 0 (11) 10(A) , No pain 13:08:06 69 17 93 47.4 99/58(92) NSR 0 (11) 10(A) , No pain 13:12:20 69 17 90 40.6 100/58(79) NSR 0 (11) 10(A) , No pain 13:16:30 69 17 97 35.3 101/60(83) NSR 0 (11) 9(A) , No pain 13:20:42 70 16 97 30.8 105/54(92) NSR 0 (11) 9(A) , No pain 13:24:52 68 17 97 38.3 102/56(84) NSR 0 (11) 9(A) , No pain 13:29:04 70 16 98 39.8 95/51(76) NSR 0 (11) 9(A) , No pain 13:33:16 68 17 98 40.6 93/53(78) NSR 0 (11) 9(A) , No pain 13:37:25 69 16 98 40.6 97/57(79) NSR 0 (11) 9(A) , No pain 13:41:36 69 17 98 37.6 98/50(75) NSR 0 (11) 9(A) , No pain 13:45:48 69 17 97 40.6 98/54(81) NSR 0 (11) 9(A) , No pain 13:47:14 69 16 98 39.8 94/53(79) NSR 0 (11) 9(A) , No pain Medications Time Medication Route Dose Verified Delivered Reason Notes Effectiveness by by 13:01:45 Oxygen etCO2 2 Jostin Reyna Per physician Nasal l/min Ralph Tyson RN cannula 13:01:53 Heparin Flush added 2 Jostin Reyna used for Bag to bags Ralph Tyson RN procedure (1000units/500ml field NS) 13:02:02 0.9% NaCl I.V. 100 Jostin Garciay Per physician ml/hr Ralph Tyson RN 13:12:57 Fentanyl I.V. 50 Jostin Garciay for sedation mcg Ralph Tyson RN 13:13:04 Versed I.V. 1 mg Jostin Garciay for sedation Ralph Tyson RN 13:17:55 Fentanyl I.V. 50 Jostin Reyna for sedation mcg Ralph Tyson RN 13:18:00 Versed I.V. 1 mg Jostin Garciay for sedation Ralph Tyson RN 13:23:53 Heparin Bolus I.V. 4000 Jostin Garciay for units Ralph Tyson RN anticoagulation Procedure Log Time Note 12:31:50 Brigido Miramontes RT(R) sent for patient. Start room use. 12:41:42 Time tracking: Regular hours (M-F 7:00 - 5:00) 12:41:47 Plan of Care:Hemodynamics will remain stable., Cardiac rhythm will remain stable., Comfort level will be maintained., Respiratory function will remain adequate., Patient/ family verbilizes understanding of procedure., Procedure tolerated without complication., Recovers from procedure without complications.. 12:42:33 H&P Date Dictated: 04/05/2018 Within 30 days and on chart.. 12:42:37 Is patient on blood thinner?Yes 12:42:40 ACC The patient was administered the following blood thiners within the last 24 hours: ACCPlavix 12:48:51 Patient received from PCU to CCL 3 Alert and oriented. Tansferred to table in Supine position. 12:48:52 Warm blankets applied, and radha hugger turned on for patient comfort. 12:48:52 Correct patient and procedure confirmed by team. 12:48:54 Signed procedure consent form obtained from patient. 12:48:54 ECG and BP/O2 sat monitors applied to patient. 12:48:55 Full Disclosure recording started 12:48:58 Pre-procedure instructions explained to patient. 12:48:59 Pre-op teaching completed and patient verbalized understanding. 12:49:00 Family in patients room. 12:49:01 Patient NPO since Midnight. 12:58:14 Vital chart was started 13:00:10 Baseline sample Acquired. 13:00:15 Rhythm: paced 13:00:28 Is the patient allergic to Iodine/contrast media? No. 13:00:48 Previous problem with sedation/anesthesia? No ? 13:00:50 Snore? No 13:00:51 Sleep apnea? No 13:00:53 Deviated septum? No 13:00:53 Opens mouth fully? Yes 13:00:54 Sticks out tongue? Yes 13:00:56 Airway obstruction? No ? 13:00:58 Dentures? No ? 13:01:10 Pre procedure: right dorsailis pedis pulse 2+ Normal; easily identifiable; not easily obliterated 13:01:13 Patient pain scale 0/10 ?. 13:01:28 IV patent on arrival in right forearm with 0.9% NaCl at [facility]. 13:01:32 Lab results completed and on chart. 13:01:36 Right groin area was prepped with chlora-prep and draped in sterile fashion 13:01:36 Alarms reviewed by R. N. 13:01:37 Sharps counted by scrub and verified by R.N. 13:01:42 Use device set Femoral Dx 13:01:43 ACIST Syringe (56221) opened to sterile field. 13:01:43 Bag Decanter (2001S) opened to sterile field. 13:01:44 Medline Cath Pack ([id number]) opened to sterile field. 13:01:44 DIAGNOSTIC WIRE .035 260cm J wire (262108) opened to sterile field. 13:01:45 Oxygen 2 l/min etCO2 Nasal cannula was administered by Axel Tyson RN; Per physician; 13:01:45 ACIST Hand Control (62668) opened to sterile field. 13:01:46 ACIST Manifold (06536) opened to sterile field. 13:01:47 DIAGNOSTIC Multipack 5Fr catheter set (AO3904) opened to sterile field. 13:01:47 Tegaderm 4 x 4 (1626W) opened to sterile field. 13:01:49 SHEATH 5FR Kingfisher (PBV420) opened to sterile field. 13:01:53 Heparin Flush Bag (1000units/500ml NS) 2 bags added to field was administered by Axel Tyson RN; used for procedure; 13:02:02 0.9% NaCl 100 ml/hr I.V. was administered by Axel Tyson RN; Per physician; 13:12:24 Final Timeout: patient, procedure, and site verified with staff and physician. All members of the team are in agreement. 13:12:30 Right groin site verified by team. 13:12:33 Physical assessment completed. ASA score P 2 - A patient with mild systemic disease as per Jostin Rosas MD. 13:12:40 Sedation plan: IV Moderate Sedation Medication:Versed, Fentanyl 13:12:57 Fentanyl 50 mcg I.V. was administered by Axel Tyson RN; for sedation; 13:13:04 Versed 1 mg I.V. was administered by Axel Tyson RN; for sedation; 13:16:47 Procedure started. 13:17:06 Local anesthetic to right femoral artery with Lidocaine 2% by Jostin Rosas MD.INITIAL ACCESS ONLY 13:17:17 A 5 Fr sheath was inserted into the Right Femoral artery 13:17:43 A MULTIPACK Pigtail 5 Fr catheter was advanced over the wire and used for LV Angiography. 13:17:55 Fentanyl 50 mcg I.V. was administered by Axel Tyson RN; for sedation; 13:18:00 Versed 1 mg I.V. was administered by Axel Tyson RN; for sedation; 13:18:13 LV gram done using MARR 13:18:20 Injector settings: Ml/sec: 10, Volume: 20, 13:18:28 EF : 40 % 13:18:29 Catheter removed. 13:18:37 A MULTIPACK JL 4.0 5Fr catheter was advanced over the wire and used for Left Coronary Angiography. 13:19:48 Catheter removed. 13:19:57 A MULTIPACK 3DRC 5Fr catheter was advanced over the wire and used for Right Coronary Angiography. 13:20:06 Use device set TAU PCI 13:20:12 INFLATOR Merit BasixCompak (QZ5195) opened to sterile field. 13:21:08 Catheter removed. 13:21:11 SHEATH 6FR Kingfisher (IYK615) opened to sterile field. 13:21:23 [place] IVUS Catheter (91308F) opened to sterile field. 13:21:23 GUIDE 6FR AR 1.0 SH catheter ([id number]) opened to sterile field. 13:21:58 CHOICE PT Extra Support 182cm wire ([id number]) opened to sterile field. 13:22:08 Sheath upsized to a 6 Fr Short. 13:22:52 6 Fr AR 1.0 SH guide catheter was inserted over the wire 13:23:24 CHOICE PT ES wire advanced. 13:23:32 Procedure type changed to Cath procedure, Diagnostic procedure, LHC, C w/Coronaries, FFR/IVUS, Intra-Coronary IVUS Initial, Sedation Charges, Moderate Sedation up to 30 minutes, PCI procedure, Coronary Stent, Coronary Stent Initial 13:23:53 Heparin Bolus 4000 units I.V. was administered by Axel Tyson RN; for anticoagulation; 13:24:28 IVUS catheter advanced over wire. 13:24:38 IVUS pass to RCA lesion performed. 13:25:01 IVUS catheter removed over wire. 13:27:51 Wire removed. damaged. 13:28:00 The FRANK RX 2.75 x 15 stent ([id number]) was advanced then removed because of failure to cross lesion 13:28:01 WHISPER 190cm wire ([id number]) opened to sterile field. 13:28:17 WHISPER wire advanced. 13:30:09 Wire removed. damaged. 13:30:49 NEW WHISPER wire advanced. 13:31:22 WHISPER 190cm wire ([id number]) opened to sterile field. 13:31:53 3RD WHISPER wire advanced. 13:34:11 The FRANK RX 2.75 x 15 stent ([id number]) was advanced then removed because 13:34:52 Wire removed. 13:34:58 Guide catheter removed. 13:35:07 Sheath upsized to a 7 Fr Short. 13:35:18 SHEATH 7FR Kingfisher (INR132) opened to sterile field. 13:35:36 7 Fr AR 1.0 SH guide catheter was inserted over the wire 13:37:01 WHISPER wire advanced. 13:38:38 The EUPHORA 2.5 x 15 Balloon ([id number]) was advanced and then removed because of failure to cross lesion 13:39:07 GRAPHIX 182cm guide wire ([id number]) opened to sterile field. 13:40:31 Inflate balloon Inflation number: 1 A EUPHORA 2.5 x 15 Balloon ([id number]) was prepped and advanced across the Prox RCA, then inflated to 15 JAZIEL for 0:03 (min:sec). 13:40:45 Balloon removed over the wire. 13:42:44 Place stent Inflation Number: 2 A FRANK RX 2.75 x 15 stent ([id number]) was prepped and advanced across the Prox RCA. The stent was deployed at 17 JAZIEL for 0:04 (min:sec). 13:43:07 Stent catheter was removed intact over wire. 13:43:07 Wire removed. 13:43:08 Guide catheter removed. 13:43:22 Sheath removed intact; hemostasis achieved with Exoseal to the Right Femoral artery. 13:43:23 Procedure ended.(Physican Out) 13:43:36 Fluoroscopy time 09.90 minutes. 13:43:58 Flurop Dose total: 293 13:43:58 Fluoroscopy dose: 293 mGy 13:44:27 Contrast amount:Isovue 300 115ml. 13:44:28 Sharps counted by scrub and verified by R.N. 13:44:32 Insertion/operative site no bleeding no hematoma. 13:44:35 Post-op/insertion site Right Femoral artery dressed using a 4 x 4 and Tegaderm. 13:44:39 Post right femoral artery:stable, clean and dry 13:44:41 Post Procedure Pulses reassessed and unchanged 13:45:03 Post-procedure physical assessment completed. ASA score P 2 - A patient with mild systemic disease as per Jostin Rosas MD. 13:45:06 Post procedure rhythm: unchanged. 13:45:08 Estimated blood loss: 10 ml 13:45:10 Post procedure instruction explained to patient.Patient verbalizes understanding. 13:45:13 Patient needs reinforcement of post procedure teaching. 13:45:18 Procedure Complication : No complications 13:45:20 See physician's report for complete and final results. 13:46:10 EXOSEAL 7Fr (EX700) opened to sterile field. 13:46:34 WHISPER 190cm wire ([id number]) opened to sterile field. 13:47:34 GUIDE 7FR AR 1.0 SH catheter ([id number]) opened to sterile field. 13:50:09 Procedure and supply charges have been captured, reviewed, submitted and are correct. 13:50:12 Vital chart was stopped 13:50:14 Report given to PCU. 13:50:17 Patient transfered to PCU with Bed. 13:50:33 Procedure ended. 13:50:33 Full Disclosure recording stopped 13:50:36 End room use (Document Last) Intervention Summary Intervention Notes Time ActionType Lesion and Equipment Used Action# Pressure Duration Attributes 13:28:00 Discard FRANK RX 2.75 x Stent 15 stent ([id number]) 13:34:11 Discard FRANK RX 2.75 x Stent 15 stent ([id number]) 13:38:38 Discard EUPHORA 2.5 x Balloon 15 Balloon ([id number]) 13:40:31 Inflate Prox RCA EUPHORA 2.5 x 1 15 00:03 balloon 15 Balloon ([id number]) 13:42:44 Place stent Prox RCA FRANK RX 2.75 x 2 17 00:04 15 stent ([id number]) Device Usage Item Name Manufacture Quantity Catalog Number Hospital Part Current M inimal Lot# / Charge Number Stock Stock Serial# Code ACIST Syringe Acist 1 66413 037063 519908 267155 2 0 (02590) Medical Systems Inc Bag Decanter Microtek 1 873272 23163 921345 5 () Medical Inc. Medline Cath Medline 1 [id number] 435458 21244 452523 5 Pack ([id number]) DIAGNOSTIC St Sharad 1 600958 212946 738204 410665 3 0 WIRE .035 260cm J wire (523805) ACIST Hand Acist 1 08017 923760 737025 011759 5 Control Medical (07248) Systems Inc ACIST Manifold Acist 1 48007 571507 876836 325557 5 (39165) Medical Systems Inc DIAGNOSTIC Cardinal 1 QO5679 055551 43802 864133 3 0 Multipack 5Fr Health catheter set (NY0281) Tegaderm 4 x 4 3M 1 1626W 013446 695525 736879 5 (1626W) SHEATH 5FR Terumo 1 JGO198 550516 417152 327729 4 0 Kingfisher (AYZ512) MULTIPACK Cardinal 1 441846 5 Pigtail 5 Fr Health catheter MULTIPACK JL Cardinal 1 983231 5 4.0 5Fr Health catheter MULTIPACK 3DRC Cardinal 1 048604 5 5Fr catheter Health INFLATOR Merit Merit 1 RV5208 372353 464424 274325 1 5 TopChalks (LW3555) SHEATH 6FR Terumo 1 PWZ542 726054 936235 135989 4 0 [place] (TEK969) [place] 1 20015Q 378974 325116 435449 8 [place] IVUS Catheter (99088Y) GUIDE 6FR AR Medtronic 1 [id number] 612708 43212 516079 1 1.0 SH catheter ([id number]) CHOICE PT [place] 1 [id number] 491574 572144 565878 5 Extra Support Scientific 182cm wire ([id number]) WHISPER 190cm [place] 3 [id number] 125779 074996 786086 5 wire Vascular ([id number]) FRANK RX 2.75 x Medtronic 1 [id number] 954249 9888067 257928 5 [id number] 15 stent ([id number]) SHEATH 7FR Terumo 1 UFA297 502358 757598 315597 5 Kingfisher (ZCG651) EUPHORA 2.5 x Medtronic 1 [id number] 933844 099040 346631 5 [id number] 15 Balloon ([id number]) GRAPHIX 182cm [place] 1 [id number] 919040 247510 746105 5 guide wire Scientific ([id number]) EXOSEAL 7Fr Cardinal 1 EX700 023111 485830 426978 5 (EX700) Health GUIDE 7FR AR Medtronic 1 [id number] 847607 869761 211894 0 1.0 SH catheter ([id number]) Signature Audit [place] Stage Time Signature Unsigned Intra-Procedure 04/05/2018 Fifi 1:50:48 PM Counts RT(R) Signatures Monitor : Fifi Signature : Counts RT Date : Time : [address] [address]
[~2018-04-04 13:58] MED LIST changes: +HYDROCHLOROTH12.5 M1 PO; +RYTHMOL SR225 MG PO
[2018-04-04 14:28] VITALS: BP 99/66
[2018-04-04 14:52] LABS: BASOPHILS 0.4 % (0-2); EOSINOPHILS 5.5 % (0-7); HEMATOCRIT 41.8 % (36.0-48.0); HEMOGLOBIN 14.1 g/dL (12-16); IMMATURE GRANULOCYTES 0.1 % (0-5); LYMPHOCYTES 13.6 % (15-50); MCH 30.8 pg (26.0-34.0); MCHC 33.7 g/dL (31.0-37.0); MCV 91.3 fL (80.0-100.0); MEAN PLATELET VOLUME 9.8 fL (7.4-10.4); MONOCYTES 4.6 % (2-11); NEUTROPHILS 75.8 % (40-80); RBC 4.58 10x6/uL (4.00-5.40); RDW 13.7 % (11.5-14.5); WBC 11.2 10x3/uL (4.8-10.8)
[2018-04-04 14:53] LABS: PLATELET COUNT 231 10x3/uL (130-400)
[2018-04-04 15:08] LABS: ALKALINE PHOSPHATASE 59 U/L (46-116); ALT (SGPT) 22 U/L (10-68); BILIRUBIN - TOTAL 0.34 mg/dL (0.2-1.3); CALC OSMOLALITY 283 mosm/kg (275-300); CARBON DIOXIDE 24.5 mmol/L (21.0-32.0); CHLORIDE - SERUM 102 mmol/L (98-107); CREATININE - SERUM 1.1 mg/dL (0.6-1.3); GLUCOSE 129 mg/dL (74-106); PROTEIN - SERUM 7.7 g/dL (6.4-8.2); SODIUM 139 mmol/L (136-145); UREA NITROGEN 25 mg/dL (7-18); eGFR NON AFRICAN AMERICAN 51 mL/min (90-120)
[2018-04-04 15:12] LABS: APTT 28.1 SECONDS (22.8-39.4); INR 1.12 (0.85-1.17)
[2018-04-04 15:19] LABS: CKMB 1.4 U/L (0.0-3.6); CREATINE KINASE 90 UL (21-215); MAGNESIUM - SERUM 2.2 mg/dL (1.8-2.4)
[2018-04-04 15:23] LABS: TROPONIN-I < 0.017 ng/mL (0.000-0.060)
[2018-04-04 16:21] LABS: APPEARANCE CLEAR (CLEAR); BILIRUBIN NEGATIVE (NEGATIVE); COLOR YELLOW (YELLOW); GLUCOSE NEGATIVE (NEGATIVE); KETONE NEGATIVE (NEGATIVE); NITRITE NEGATIVE (NEGATIVE); PROTEIN NEGATIVE (NEGATIVE); UROBILINOGEN NORMAL (NORMAL)
[2018-04-04 16:51] VITALS: BP 149/78
[2018-04-04 16:56] VITALS: BP 136/64
[2018-04-04 17:24] LABS: TROPONIN-I 0.365 ng/mL (0.000-0.060)
[2018-04-04 20:00] VITALS: BP 123/53
[2018-04-04 22:19] LABS: CKMB 5.2 U/L (0.0-3.6); CREATINE KINASE 118 UL (21-215)
[2018-04-04 22:21] LABS: TROPONIN-I 2.143 ng/mL (0.000-0.060)
[2018-04-05 00:26] VITALS: BMI 26.3
[2018-04-05 00:47] VITALS: BP 99/52
[2018-04-05 04:00] VITALS: BP 98/52
[2018-04-05 05:56] LABS: CKMB 5.4 U/L (0.0-3.6); CREATINE KINASE 124 UL (21-215)
[2018-04-05 05:57] LABS: TROPONIN-I 2.556 ng/mL (0.000-0.060)
[2018-04-05 08:22] VITALS: BP 118/65
[2018-04-05 12:39] VITALS: Ht 162.6 cm; Wt 69.5 kg
[2018-04-05 13:18] VITALS: BP 118/57
[2018-04-05 17:13] VITALS: BP 115/89
[2018-04-05 20:00] VITALS: BP 126/88
[2018-04-06] VITALS: BP 117/48
[2018-04-06 04:00] VITALS: BP 114/59
[2018-04-06 05:14] LABS: BASOPHILS 0.3 % (0-2); EOSINOPHILS 7.2 % (0-7); HEMATOCRIT 39.6 % (36.0-48.0); HEMOGLOBIN 13.2 g/dL (12-16); IMMATURE GRANULOCYTES 0.1 % (0-5); LYMPHOCYTES 23.8 % (15-50); MCH 30.4 pg (26.0-34.0); MCHC 33.3 g/dL (31.0-37.0); MCV 91.2 fL (80.0-100.0); MEAN PLATELET VOLUME 9.7 fL (7.4-10.4); MONOCYTES 10.9 % (2-11); NEUTROPHILS 57.7 % (40-80); PLATELET COUNT 225 10x3/uL (130-400); RBC 4.34 10x6/uL (4.00-5.40); RDW 13.7 % (11.5-14.5); WBC 9.4 10x3/uL (4.8-10.8)
[2018-04-06 05:42] LABS: ALBUMIN 3.1 g/dL (3.4-5.0); ANION GAP 11.9 mmol/L (8-16); BILIRUBIN - TOTAL 0.27 mg/dL (0.2-1.3); CALCIUM 8.4 mg/dL (8.5-10.1); CARBON DIOXIDE 26.9 mmol/L (21.0-32.0); MAGNESIUM - SERUM 2.2 mg/dL (1.8-2.4); POTASSIUM - SERUM 3.8 mmol/L (3.5-5.1); PROTEIN - SERUM 6.7 g/dL (6.4-8.2)
[2018-04-06 09:39] VITALS: BP 116/62
[2018-04-06 11:34] VITALS: BP 107/55
[2018-04-06 16:00] VITALS: BP 114/74
[2018-04-06] MEDS ORDERED: PLAVIX75 MG PO (16:04)
[2018-04-06 17:00] VITALS: BP 120/80
== END 2018-04-06 19:27 | disposition home or self-care (01) ==
LOC: D.ER 13:58 → D.M2 16:21 → OBSVTIME 16:21 → D.EDHOLD 16:21 → D.M2 18:13 → D.SDCHOLD 04-06 08:19 → D.M2 04-06 08:20
PROVIDERS: Emergency Medicine
DX: I25.110 Atherosclerotic heart disease of native coronary artery with unstable angina pectoris (principal); I10 Essential (primary) hypertension; Z95.0 Presence of cardiac pacemaker
CPT/HCPCS: 93458; 92978; C9600 ×3

== ENCOUNTER 2018-04-21 12:12 | Emergency (ER) | payer MEDICARE ==
[2018-04-05 12:39] VITALS: Ht 162.6 cm; Wt 69.5 kg
[~2018-04-21] VITALS: Ht 162.6 cm; Wt 69.5 kg
[2018-04-21 12:33] LABS: BASOPHILS 0.5 % (0-2); EOSINOPHILS 10.8 % (0-7); HEMATOCRIT 37.4 % (36.0-48.0); HEMOGLOBIN 12.6 g/dL (12-16); IMMATURE GRANULOCYTES 0.1 % (0-5); LYMPHOCYTES 28.9 % (15-50); MCH 30.4 pg (26.0-34.0); MCHC 33.7 g/dL (31.0-37.0); MCV 90.3 fL (80.0-100.0); MEAN PLATELET VOLUME 9.4 fL (7.4-10.4); MONOCYTES 10.7 % (2-11); RBC 4.14 10x6/uL (4.00-5.40); RDW 14.2 % (11.5-14.5); WBC 7.3 10x3/uL (4.8-10.8)
[2018-04-21 12:35] LABS: PLATELET COUNT 286 10x3/uL (130-400)
[2018-04-21 12:49] LABS: ALBUMIN 3.6 g/dL (3.4-5.0); ALKALINE PHOSPHATASE 57 U/L (46-116); ALT (SGPT) 22 U/L (10-68); BILIRUBIN - TOTAL 0.47 mg/dL (0.2-1.3); CALC OSMOLALITY 282 mosm/kg (275-300); CALCIUM 9.1 mg/dL (8.5-10.1); CARBON DIOXIDE 29.1 mmol/L (21.0-32.0); CHLORIDE - SERUM 102 mmol/L (98-107); CREATININE - SERUM 1.1 mg/dL (0.6-1.3); GLUCOSE 122 mg/dL (74-106); POTASSIUM - SERUM 4.2 mmol/L (3.5-5.1); PROTEIN - SERUM 6.9 g/dL (6.4-8.2); SODIUM 140 mmol/L (136-145); UREA NITROGEN 21 mg/dL (7-18); eGFR NON AFRICAN AMERICAN 51 mL/min (90-120)
[2018-04-21 13:00] LABS: CKMB 0.7 U/L (0.0-3.6); CREATINE KINASE 53 UL (21-215)
[2018-04-21 13:01] LABS: TROPONIN-I < 0.017 ng/mL (0.000-0.060)
[2018-04-21 16:15] LABS: CKMB 0.7 U/L (0.0-3.6); CREATINE KINASE 46 UL (21-215); TROPONIN-I < 0.017 ng/mL (0.000-0.060)
[2018-04-21 17:47] VITALS: BP 116/72
== END 2018-04-21 17:51 | disposition home or self-care (01) ==
LOC: D.ER 12:12
PROVIDERS: Family Medicine
DX: S16.1XXA Strain of muscle, fascia and tendon at neck level, initial encounter (principal); X58.XXXA Exposure to other specified factors, initial encounter; Y93.89 Activity, other specified; Y92.019 Unspecified place in single-family (private) house as the place of occurrence of the external cause; I10 Essential (primary) hypertension; Z95.0 Presence of cardiac pacemaker; I25.10 Atherosclerotic heart disease of native coronary artery without angina pectoris

== ENCOUNTER → 2018-08-15 09:07 | Outpatient (CLI) | payer MEDICARE ==
[2018-04-21 12:20] VITALS: BMI 26.3
[~2018-08-15 09:07] MED LIST changes: +COLCRYS0.6 MG PO; +COREG 3.1253.125 MG PO; +GAVILAX510 GM
--- NOTE | 2018-08-17 15:03 | EC ---
PATIENT:CLYDE ANDERSON DATE OF SERVICE: 08/15/18 SEX: F MEDICAL RECORD: [id number] DATE OF : 39 [facility] AGE OF PATIENT: 82 ADMISSION DATE: 08/15/18 REFERRING PHYSICIAN: INTERPRETING PHYSICIAN: WADE ROSAS MD ECHOCARDIOGRAM REPORT ECHO CHARGES 4 ECHO COMPLETE Date: 08/15/18 CLINICAL DIAGNOSIS: A-FIB H/O CAD/PACEMAKER ECHOCARDIOGRAPHIC MEASUREMENTS (adult normal given) AC root (d.<3.7cm) 3.7 cm LV Septum d (<1.2 cm> 1.5 cm Valve Excursion 1.8 cm LV Septum (systole) 1.7 cm Left Atria (s.<4.0cm> 4.1 cm LVPW d(<1.2cm) 1.6 cm RV (d.<2.3cm) 2.3 cm LVPW (sytole) 1.9 cm LV diastole(<5.6CM) 4.9 cm MV E-F(>70mm/sec) cm LV systole 3.3 cm LVOT Diameter 1.7 cm MV exc.(>10mm) cm Est.ejection fraction (50-75%) % DOPPLER: LVIT cm/sec A 53.0 cm/sec E 120 cm/sec LA cm/sec RVSP 36.0 mmHg LVOT 90.0 cm/sec AOP1/2T m/s Asc. 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 Rosas TAPE# PACS Pericardial Effusion N DATE OF SERVICE: 08/15/2018 ECHOCARDIOGRAM DATE OF SERVICE: 08/15/2018 FINDINGS: 1. Left ventricular chamber size is mildly dilated. Left ventricular systolic function is markedly reduced, overall ejection fraction 20%. 2. Left atrium, right atrium, and right ventricle chamber sizes are mildly ECHOCARDIOGRAM REPORT [id number] CLYDE ANDERSON dilated. Left atrium measures 4.1 cm. 3. Valvular structures have normal structure and motion. 4. Doppler interrogation reveals vccm-ez-sgbbumav mitral regurgitation, mvku-do-nykpoocx tricuspid regurgitation, no other valvular insufficiency or stenosis. Pulmonary systolic pressure is estimated at 36 mmHg. 5. No evidence of pericardial effusion or left ventricular thrombus. TRANSINT:[id number] Voice Confirmation ID: [id number] DOCUMENT ID: [id number] WADE ROSAS MD at 1503 CC: [id number] DICTATION DATE: 08/15/18 1558 SUPERVISOR CURING ROOM: 08/15/18 2309 DEP CLI 08/15/[address] [address]
== END | disposition home or self-care (01) ==
LOC: D.HCCARDIO 09:07
PROVIDERS: ATTEND Internal Medicine Interventional Cardiology
DX: I25.10 Atherosclerotic heart disease of native coronary artery without angina pectoris (principal)

== ENCOUNTER → 2018-08-21 08:03 | Outpatient (CLI) | payer MEDICARE ==
[~2018-08-21] VITALS: Ht 162.6 cm; Wt 69.1 kg
--- NOTE | ~2018-08-21 | HEMODYNAMI ---
PATIENT:CLYDE ANDERSON MEDICAL RECORD: [id number] : 39 LOCATION:[facility] ADMISSION DATE: 08/21/18 Generatedon:08/21/201810:20 Patient name: CLYDE ANDERSON Patient #: [id number] SSN: [id number] : 1935 Date of study: 08/21/2018 Page: Of Hemodynamic Procedure Report Patient Data Patient Demographics Procedure consent was obtained First Name: CLYDE Gender: Female Last Name: JUSTIN : 1935 Middle Initial: ADELA Age: 83 year(s) Patient #: [id number] Race: SSN: [id number] Additional ID: [id number] Contact details Address: [address] [place] [address] [facility] State: [place] City: [place] Zip code: [address] Past Medical History Allergies Allergen Reaction Date Comments Reported Amoxicillin 08/21/2018 Statins 08/21/2018 Other allergy 08/21/2018 amiodorone, ambien, digoxin, lipitor, simvastatin, palgic d Admission Admission Data Admission Date: 08/21/2018 Admission Time: 8:03 Admit Source: Other Procedure Procedure Types Cath Procedure Diagnostic Procedure LHC LHC w/Coronaries FFR/IVUS Intra-Coronary IVUS Initial Sedation Charges Moderate Sedation up to 30 minutes PCI Procedure Coronary Stent Coronary Stent Initial Coronary Stent Additional Procedure Description Procedure Date Procedure Date: 08/21/2018 Procedure Start Time: 9:48 Procedure End Time: 10:17 Procedure Staff Name Function Jostin Rosas MD Performing Physician Figueroa Bates RT Monitor Marta Bentley RT Scrub Elizabeth Sharif RN Nurse Procedure Data Cath Procedure Fluoroscopy Diagnostic fluoroscopy Total fluoroscopy Time: 9.5 time: 9.5 min min Diagnostic fluoroscopy Total fluoroscopy dose: dose: 1061 mGy 1061 mGy Contrast Material Contrast Material Type Amount (ml) Isovue 300 79 Entry Location Entry Primary Successful Side Size Upsize Upsize Entry Closure Succes sful Closure Location (Fr) 1 (Fr) 2 (Fr) Remarks Device Remarks Femoral Right 5 Fr 6 Fr Exoseal artery Short Estimated blood loss: 10 ml Diagnostic catheters Device Type Used For End Catheter Placement MULTIPACK Pigtail 5 Fr Procedure catheter MULTIPACK JL 4.0 5Fr Procedure catheter MULTIPACK 3DRC 5Fr Procedure catheter Procedure Complications No complications Procedure Medications Medication Administration Route Dosage Oxygen etCO2 Nasal cannula 2 l/min Lidocaine 2% added to field 20 Heparin Flush Bag added to field 2 bags (1000units/500ml NS) 0.9% NaCl I.V. 100 ml/hr Versed I.V. 1 mg Fentanyl I.V. 50 mcg Heparin Bolus I.V. 4000 units Integrilin (Bolus I.V. 6.2 ml 2mg/ml) Plavix P.O. 600 mg Hemodynamics Rest Heart Rate: 87 (bpm) Pressure Samples Time Site Value (mmHg) Purpose Heart Use Rate(bpm) 9:50 LV 94/-7,14 Snapshot 70 Snapshots Pre Cath Intra NCS Post Cath Vital Signs Time Heart Resp SPO2 etCO2 NIBP (mmHg) Rhythm Pain Sedation Rate (ipm) (%) (mmHg) Status Level (bpm) 9:23:04 71 17 97 40.8 126/74(107) Paced 0 (11) 10(A) , No pain 9:27:18 69 15 98 40 115/70(105) Paced 0 (11) 10(A) , No pain 9:31:27 69 12 94 0 116/68(83) Paced 0 (11) 10(A) , No pain 9:35:38 69 14 95 0 126/68(96) Paced 0 (11) 10(A) , No pain 9:39:53 70 21 94 0 132/65(105) Paced 0 (11) 10(A) , No pain 9:44:05 69 29 96 14.3 129/82(109) Paced 0 (11) 10(A) , No pain 9:48:19 94 15 96 22.6 130/69(107) Paced 0 (11) 9(A) , No pain 9:52:35 69 17 94 3 132/69(105) Paced 0 (11) 9(A) , No pain 9:56:51 70 15 94 27.2 131/67(115) Paced 0 (11) 9(A) , No pain 10:01:03 79 12 94 43.8 138/75(107) Paced 0 (11) 9(A) , No pain 10:05:17 81 13 95 40.8 137/78(108) Paced 0 (11) 9(A) , No pain 10:09:33 78 16 96 31.7 133/75(101) Paced 0 (11) 9(A) , No pain 10:13:51 69 12 97 31.7 126/64(105) Paced 0 (11) 10(A) , No pain 10:18:03 69 17 97 41.5 136/68(107) Paced 0 (11) 10(A) , No pain Medications Time Medication Route Dose Verified Delivered Reason Notes Effectiveness by by 9:27:06 Oxygen etCO2 2 Jostin Johnson used for Nasal l/min Ralph Sharif RN procedure cannula 9:27:14 Lidocaine 2% added 20ml Jostin Frankel for local to vial Ralph Rosas MD anesthetic field 9:27:20 Heparin Flush added 2 Jostin Frankel used for Bag to bags Ralph Rosas MD procedure (1000units/500ml field NS) 9:27:28 0.9% NaCl I.V. 100 Jostin Johnson Per physician ml/hr Ralph Sharif RN 9:46:27 Versed I.V. 1 mg Jostin Johnson for sedation Ralph Sharif RN 9:46:33 Fentanyl I.V. 50 Jostin Johnson for sedation mcg Ralph Sharif RN 9:55:09 Heparin Bolus I.V. 4000 Jostin Johnson for verif ied units Ralph Sharif RN anticoagulation with dr rosas 9:57:21 Integrilin I.V. 6.2 Jostin Johnson for Waste d (Bolus 2mg/ml) ml Ralph Sharif RN antiplatelet 3.8 ml therapy of vial 10:16:41 Plavix P.O. 600 Jostin Johnson for mg Ralph Sharif RN antiplatelet therapy Procedure Log Time Note 9:06:53 Informed consent obtained and on chart 9:06:58 Admit Source: Other 9:07:12 Diagnostic Cath status Elective 9:07:14 Elizabeth Sharif RN sent for patient. Start room use. 9:07:15 Time tracking: Regular hours (M-F 7:00 - 5:00) 9:07:19 Plan of Care:Hemodynamics will remain stable., Cardiac rhythm will remain stable., Comfort level will be maintained., Respiratory function will remain adequate., Patient/ family verbilizes understanding of procedure., Procedure tolerated without complication., Recovers from procedure without complications.. 9:15:12 Patient received from Pre/Post Procedure Room to CCL 2 Alert and oriented. Tansferred to table in Supine position. 9:15:13 Warm blankets applied, and radha hugger turned on for patient comfort. 9:15:13 Correct patient and procedure confirmed by team. 9:15:14 ECG and BP/O2 sat monitors applied to patient. 9:15:15 Pre-procedure instructions explained to patient. 9:15:15 Pre-op teaching completed and patient verbalized understanding. 9:15:16 Family in waiting room. 9:15:18 Patient NPO since Midnight. 9:18:30 Full Disclosure recording started 9:18:51 H&P Date Dictated: 08/20/2018 Within 30 days and on chart., H&P Addendum completed by physician on day of procedure. (MUST COMPLETE FOR ALL OUTPATIENTS). 9:21:03 Patient allergic to Amoxicillin 9:21:15 Patient allergic to Statins 9:21:56 Patient allergic to Other allergyamiodorone, ambien, digoxin, lipitor, simvastatin, palgic d 9:22:00 Vital chart was started 9:22:17 Rhythm: paced 9:22:22 Is the patient allergic to Iodine/contrast media? No. 9:22:33 Is patient on blood thinner?No 9:22:35 Patient diabetic? No. 9:22:37 Previous problem with sedation/anesthesia? No ? 9:22:39 Snore? No 9:22:40 Sleep apnea? No 9:22:41 Deviated septum? No 9:22:42 Opens mouth fully? Yes 9:22:43 Sticks out tongue? Yes 9:22:45 Airway obstruction? No ? 9:22:55 Dentures? Yes Bottoms are out 9:22:59 Pre procedure: right dorsailis pedis pulse 1+ Palpable, but thready & weak; easily obliterated 9:23:06 Patient pain scale 0/10 ?. 9:23:16 IV patent on arrival in right forearm with 0.9% NaCl at [facility]. 9:23:18 Lab results completed and on chart. 9:23:21 Right groin area was prepped with chlora-prep and draped in sterile fashion 9:: Alarms reviewed by R. N. 9:: Sharps counted by scrub and verified by R.N. 9:23:26 Use device set Femoral Dx 9:23:27 ACIST Syringe (86756) opened to sterile field. 9:23:27 Bag Decanter (2002S) opened to sterile field. 9:23:28 Medline Cath Pack ([id number]) opened to sterile field. 9:23:28 DIAGNOSTIC WIRE .035 260cm J wire ([id number]) opened to sterile field. 9:23:31 ACIST Hand Control (50304) opened to sterile field. 9:23:32 ACIST Manifold (77714) opened to sterile field. 9:23:32 DIAGNOSTIC Multipack 5Fr catheter set (SE1476) opened to sterile field. 9:23:33 Tegaderm 4 x 4 (1626W) opened to sterile field. 9:23:34 SHEATH 5FR [place] (WAO894) opened to sterile field. 9:26:07 Baseline sample Acquired. 9:27:06 Oxygen 2 l/min etCO2 Nasal cannula was administered by Elizabeth Sharif RN; used for procedure; 9::14 Lidocaine 2% 20ml vial added to field was administered by Jostin Rosas MD; for local anesthetic; 9:27:20 Heparin Flush Bag (1000units/500ml NS) 2 bags added to field was administered by Jostin Rosas MD; used for procedure; ::28 0.9% NaCl 100 ml/hr I.V. was administered by Elizabeth Sharif RN; Per physician; 9:33:32 Zero performed for pressure channel P1 9:44:20 Physician arrived 9:44: --------ALL STOP TIME OUT------ :44:21 Final Timeout: patient, procedure, and site verified with staff and physician. All members of the team are in agreement. 9:44:25 Right groin site verified by team. 9:44:28 Maximum allowable Isovue 300 dose 300ml. Physician notified. (300ml for normal creatinines. For patients with creatinine of 1.7 or higher multiply weight(kg) x 5 divided by creatinine.) 9:44:31 Fire Safety Assessment: A--An alcohol-based skin anteseptic being used preoperatively., C--Open oxygen or nitrous oxide is being used., D--An ESU, laser, or fiber-optic light is being used. 9:44:35 Physical assessment completed. ASA score P 2 - A patient with mild systemic disease as per Jostin Rosas MD. 9:44:37 Sedation plan: IV Moderate Sedation Medication:Versed, Fentanyl 9:46:27 Versed 1 mg I.V. was administered by Elizabeth Sharif RN; for sedation; 9:46:33 Fentanyl 50 mcg I.V. was administered by Elizabeth Sharif RN; for sedation; 9:48:17 Procedure started. 9:48:20 Local anesthetic to right femoral artery with Lidocaine 2% by Jostin Rosas MD.INITIAL ACCESS ONLY 9:48:28 A 5 Fr sheath was inserted into the Right Femoral artery 9:49:49 A MULTIPACK Pigtail 5 Fr catheter was advanced over the wire and used for Procedure. 9:50:13 LV gram done using MARR 9:50:16 Injector settings: Ml/sec: 10, Volume: 20, 9:50:17 LV hemodynamics recorded. 9:50:21 EF : 30 % 9:50:23 Catheter exchanged over wire. 9:50:26 A MULTIPACK JL 4.0 5Fr catheter was advanced over the wire and used for Procedure. 9:51:22 LCA angiography performed. 9:52:15 Catheter exchanged over wire. 9:52:19 A MULTIPACK 3DRC 5Fr catheter was advanced over the wire and used for Procedure. 9:52:58 RCA angiography performed. 9:53:32 Catheter removed. 9:53:38 SHEATH 6FR [place] (GHS827) opened to sterile field. 9:53:40 Sheath upsized to a 6 Fr Short. 9:53:47 CHOICE PT Extra Support 182cm wire ([id number]) opened to sterile field. 9:53:48 INFLATOR Merit BasixCompak (QR8049) opened to sterile field. 9:53:53 Rarden Karl[place] Eagleye IVUS Catheter (68864E) opened to sterile field. 9:54:54 GUIDE 6FR 3DRC catheter ([id number]) opened to sterile field. 9:54:59 6 Fr 3DRC guide catheter was inserted over the wire 9:55:04 CHOICE PT ES wire advanced. 9:55:05 Wire advanced across lesion. 9:55:09 Heparin Bolus 4000 units I.V. was administered by Elizabeth Sharif RN; for anticoagulation; verified with dr rosas 9:56:12 Wire removed. 9:56:18 Guide Catheter removed. unable to get back-up support 9:56:24 GUIDE 6FR AR 2.0 SH catheter ([id number]) opened to sterile field. 9:56:33 6 Fr AR 2 SH guide catheter was inserted over the wire 9:57:21 Integrilin (Bolus 2mg/ml) 6.2 ml I.V. was administered by Elizabeth Sharif RN; for antiplatelet therapy; Wasted 3.8 ml of vial 9:57:50 CHOICE PT ES wire advanced. 9:57:51 Wire advanced across lesion. 9:57:54 IVUS catheter advanced over wire. 9:57:56 IVUS pass to RCA lesion performed. 9:59:26 IVUS catheter removed over wire. 10:00:38 The EUPHORA 2.5 x 10 Balloon ([id number]) was advanced and then removed because of failure to cross lesion 10:03:03 The EUPHORA 1.5 x 10 Balloon ([id number]) was advanced and then removed because of failure to cross lesion 10:03:07 Wire removed. 10:03:55 CHOICE PT Extra Support 182cm wire ([id number]) opened to sterile field. 10:04:01 CHOICE PT ES wire advanced. 10:04:23 Inflate balloon Inflation number: 1 A EUPHORA 1.5 x 10 Balloon ([id number]) was prepped and advanced across the 1st RPL, then inflated to 21 JAZIEL for 0:10 (min:sec). 10:04:26 Inflation number: 2 The EUPHORA 1.5 x 10 Balloon ([id number]) was reinflated across the 1st RPL, to 21 JAZIEL for 0:10 (min:sec). 10:04:30 Inflation number: 3 The EUPHORA 1.5 x 10 Balloon ([id number]) was reinflated across the 1st RPL, to 21 JAZIEL for 0:10 (min:sec). 10:04:49 Balloon removed over the wire. 10:05:27 Inflate balloon Inflation number: 4 A EUPHORA 2.5 x 10 Balloon ([id number]) was prepped and advanced across the 1st RPL, then inflated to 13 JAZIEL for 0:10 (min:sec). 10:05:46 Inflation number: 5 The EUPHORA 2.5 x 10 Balloon ([id number]) was reinflated across the 1st RPL, to 9 JAZIEL for 0:10 (min:sec). 10:07:09 Inflation number: 6 The EUPHORA 2.5 x 10 Balloon ([id number]) was reinflated across the 1st RPL, to 17 JAZIEL for 0:10 (min:sec). 10:07:30 Balloon removed over the wire. 10:08:44 Place stent Inflation Number: 7 A FRANK RX 2.5 x 18 stent ([id number]) was prepped and advanced across the 1st RPL. The stent was deployed at 11 JAZIEL for 0:10 (min:sec). 10:10:48 Stent catheter was removed intact over wire. 10:11:35 Place stent Inflation Number: 1 A FRANK RX 3.5 x 15 stent ([id number]) was prepped and advanced across the Prox RCA. The stent was deployed at 15 JAZIEL for 0:10 (min:sec). 10:12:01 Stent catheter was removed intact over wire. 10:12:02 Wire removed. 10:12:02 Guide catheter removed. 10:12:09 EXOSEAL 6Fr (EX600) opened to sterile field. 10:12:16 Sheath removed intact; hemostasis achieved with Exoseal to the Right Femoral artery. 10:14:10 Procedure ended.(Physican Out) 10:15:58 Fluoroscopy time 09.50 minutes. 10:16:01 Fluoroscopy dose: 1061 mGy 10:16:01 Flurop Dose total: 1061 10:16:06 Contrast amount:Isovue 300 79ml. 10:16:13 Sharps counted by scrub and verified by R.N. 10:16:16 Insertion/operative site no bleeding no hematoma. 10:16:18 Post-op/insertion site Right Femoral artery dressed using a 4 x 4 and Tegaderm. 10:16:21 Post right femoral artery:stable, soft, clean and dry 10:16:22 Post Procedure Pulses reassessed and unchanged 10:16:24 Post-procedure physical assessment completed. ASA score P 2 - A patient with mild systemic disease as per Jostin Rosas MD. 10:16:29 Post procedure rhythm: unchanged. 10:16:31 Estimated blood loss: 10 ml 10:16:33 Post procedure instruction explained to patient.Patient verbalizes understanding. 10:16:33 Patient needs reinforcement of post procedure teaching. 10:16:41 Plavix 600 mg P.O. was administered by Elizabeth Sharif RN; for antiplatelet therapy; 10:17:03 Procedure type changed to Cath procedure, Diagnostic procedure, LHC, LHC w/Coronaries, FFR/IVUS, Intra-Coronary IVUS Initial, Sedation Charges, Moderate Sedation up to 30 minutes, PCI procedure, Coronary Stent, Coronary Stent Initial, Coronary Stent Additional 10:17:41 Procedure and supply charges have been captured, reviewed, submitted and are correct. 10:17:43 Procedure Complication : No complications 10:17:45 Vital chart was stopped 10:17:45 See physician's report for complete and final results. 10:17:49 Report given to Pre/Post Procedure Room. 10:17:51 Patient transfered to Pre/Post Procedure Room with Stretcher. 10:17:53 Procedure ended. 10:17:53 Full Disclosure recording stopped 10:17:57 End room use (Document Last) Intervention Summary Intervention Notes Time ActionType Lesion and Equipment Used Action# Pressure Duration Attributes 10:00:38 Discard EUPHORA 2.5 x Balloon 10 Balloon ([id number]) 10:03:03 Discard EUPHORA 1.5 x Balloon 10 Balloon ([id number]) 10:04:23 Inflate 1st RPL EUPHORA 1.5 x 1 21 00:10 balloon 10 Balloon ([id number]) 10:04:26 Reinflate 1st RPL EUPHORA 1.5 x 2 21 00:10 balloon 10 Balloon ([id number]) 10:04:30 Reinflate 1st RPL EUPHORA 1.5 x 3 21 00:10 balloon 10 Balloon ([id number]) 10:05:27 Inflate 1st RPL EUPHORA 2.5 x 4 13 00:10 balloon 10 Balloon ([id number]) 10:05:46 Reinflate 1st RPL EUPHORA 2.5 x 5 9 00:10 balloon 10 Balloon ([id number]) 10:07:09 Reinflate 1st RPL EUPHORA 2.5 x 6 17 00:10 balloon 10 Balloon ([id number]) 10:08:44 Place stent 1st RPL FRANK RX 2.5 x 7 11 00:10 18 stent ([id number]) 10:11:35 Place stent Prox RCA FRANK RX 3.5 x 1 15 00:10 15 stent ([id number]) Device Usage Item Name Manufacture Quantity Catalog Number Hospital Part Current M inimal Lot# / Charge Number Stock Stock Serial# Code ACIST Syringe Acist 1 57438 404292 424228 481397 2 0 (84633) Medical Systems Inc Bag Decanter Microtek 1 661534 59129 492837 5 () Medical Inc. Medline Cath Medline 1 [id number] 847943 30463 683085 5 Pack ([id number]) DIAGNOSTIC St Sharad 1 194857 474150 134338 002299 3 0 WIRE .035 260cm J wire (556106) ACIST Hand Acist 1 81914 243877 446109 549972 5 Control Medical (45041) Systems Inc ACIST Manifold Acist 1 73660 506335 025582 226324 5 (04357) Medical Systems Inc DIAGNOSTIC Cardinal 1 OQ4770 648189 18036 545048 3 0 Multipack 5Fr Health catheter set (KI7782) Tegaderm 4 x 4 3M 1 1626W 257087 312122 872683 5 (1626W) SHEATH 5FR Terumo 1 BMJ749 142930 957715 456210 5 [place] (FIU407) MULTIPACK Cardinal 1 711975 5 Pigtail 5 Fr Health catheter MULTIPACK JL Cardinal 1 164658 5 4.0 5Fr Health catheter MULTIPACK 3DRC Cardinal 1 505737 5 5Fr catheter Health SHEATH 6FR Terumo 1 BDA367 543131 030417 498584 4 0 [place] (SJG737) CHOICE PT [place] 2 [id number] 639512 901879 325377 5 Extra Support Scientific 182cm wire ([id number]) INFLATOR Merit Merit 1 ZH2831 406545 762791 644089 1 5 Tasted Menu (RU7473) Rarden Rarden 1 02535H 707715 578481 208781 8 [place] Eagleye IVUS Catheter (33972R) GUIDE 6FR 3DRC Medtronic 1 [id number] 472996 386017 509507 1 catheter ([id number]) GUIDE 6FR AR Medtronic 1 [id number] 783735 81107 628819 1 2.0 SH catheter ([id number]) EUPHORA 2.5 x Medtronic 1 [id number] 359917 678886 498503 5 [id number] 10 Balloon ([id number]) EUPHORA 1.5 x Medtronic 1 [id number] 584100 351492 339904 5 [id number] 10 Balloon ([id number]) FRANK RX 2.5 x Medtronic 1 [id number] 490537 6711468 612270 5 [id number] 18 stent ([id number]) FRANK RX 3.5 x Medtronic 1 [id number] 471855 1961947 020942 5 [id number] 15 stent ([id number]) EXOSEAL 6Fr Cardinal 1 EX600 114715 952171 347072 1 0 (EX600) Health Signature Audit [place] Stage Time Signature Unsigned Intra-Procedure 08/21/2018 Figueroa Bates 10:19:53 AM RT(R) Signatures Monitor : Figueroa Bates RT Signature : Date : Time : [id number] [place] [address]
--- NOTE | ~2018-08-21 | OP ---
PATIENT NAME: CLYDE ANDERSON MEDICAL RECORD: [id number] :37 LOCATION:D.[facility] ADMISSION DATE: SURGEON: WADE WOODWARD MD DATE OF OPERATION: 08/21/2018 PROCEDURES: 1. PTCA stent RCA. 2. PTCA stent RCA PLV. 3. Intravascular ultrasound. 4. Left heart catheterization. 5. Selective coronary angiography. 6. Left ventriculogram. INDICATION: Angina and coronary artery disease. PROCEDURE IN DETAIL: After informed consent was obtained and after a detailed description of risks, benefits as well as alternative therapies, the patient elected to proceed with angiogram and angioplasty. The right femoral area was prepped and draped in normal sterile fashion. The right femoral artery was cannulated via modified Seldinger technique with placement of 6-Bulgarian sheath. All catheters exchanged through this sheath. FINDINGS: Left ventriculogram was performed in standard 30-degree MARR view, reveals global hypokinesis, ejection fraction is 30%. SELECTIVE CORONARY ANGIOGRAPHY: 1. Left main showed no significant angiographic disease. 2. Left anterior descending has 75% stenosis in the proximal vessel. 3. Left circumflex has moderate irregularities, but no flow-limiting stenosis. 4. Right coronary artery has 65% to 70% stenosis proximally, 75% stenosis at the PLV. PTCA STENT OF THE RCA AND PLV: The RCA was addressed with a 3.5 x 15 mm Augie. The PLV with a 2.5 x 18 mm Augie. Result was 0% residual stenosis. OVERALL IMPRESSION: Successful PTCA stent of the RCA and PLV going from 70% to 75% initial stenosis to 0% residual. PLAN: For PTCA stent of the LAD in the near future. TRANSINT:[id number] Voice Confirmation ID: [id number] DOCUMENT ID: [id number] WADE WOODWARD MD CC: [id number] DICTATION DATE: 08/21/18 1026 SOLAR DESIGNER/INSTALLER: 08/21/18 [id number] [place] [address]
[2018-08-21 08:33] VITALS: BP 125/75; Ht 162.6 cm; Wt 69.1 kg
[2018-08-21 08:53] LABS: BASOPHILS 0.5 % (0-2); EOSINOPHILS 8.4 % (0-7); HEMATOCRIT 43.1 % (36.0-48.0); HEMOGLOBIN 14.7 g/dL (12-16); IMMATURE GRANULOCYTES 0.1 % (0-5); LYMPHOCYTES 25.1 % (15-50); MCH 30.4 pg (26.0-34.0); MCHC 34.1 g/dL (31.0-37.0); MCV 89.2 fL (80.0-100.0); MEAN PLATELET VOLUME 9.8 fL (7.4-10.4); MONOCYTES 10.3 % (2-11); NEUTROPHILS 55.6 % (40-80); PLATELET COUNT 251 10x3/uL (130-400); RBC 4.83 10x6/uL (4.00-5.40); RDW 13.8 % (11.5-14.5); WBC 7.9 10x3/uL (4.8-10.8)
[2018-08-21 09:11] LABS: ANION GAP 11.8 mmol/L (8-16); CARBON DIOXIDE 30.9 mmol/L (21.0-32.0); CREATININE - SERUM 1.2 mg/dL (0.6-1.3); POTASSIUM - SERUM 3.7 mmol/L (3.5-5.1)
--- NOTE | 2018-08-21 10:40 | NUR ---
RECIEVED TO ROOM VIA STRETCHER FROM EMPLOYMENT SPECIALIST WITH 6 FR EXOSEAL TO R/GROIN CDI NO BLEEDING OR HEMATOMA NOTED. PATIENT CONNECTED TO MONITOR FOR OBSERVATION WITH HR PACED AT 70 BP 140/72 CHEST PAIN IS DENIED
--- NOTE | 2018-08-21 10:47 | NUR ---
6 FR EXOSEAL R/GROIN IS CDI WITH NO BLEEDING OR HEMATOMA NOTED. CHEST PAIN IS DENIED FAMILY PRESENT AT BEDSIDE.
--- NOTE | 2018-08-21 11:23 | NUR ---
6 FR EXOSEAL R/GROIN IS CDI WITH HR 70 CHEST PAIN DENIED. R/FOOT WARM TO TOUCH WITH PULSES PALPABLE
--- NOTE | 2018-08-21 11:46 | NUR ---
PATIENT RESTING QUIETLY WITH NO DISTRESS NOTED. 6 FR EXOSEAL R/GROIN IS CDI WITH VSS AND CHEST PAIN DENIED
--- NOTE | 2018-08-21 12:10 | NUR ---
6 FR EXOSEAL R/GROIN REMAINS CDI WITH NO BLEEDING. HR 70 BP 103/56. FAMILY IS AT BEDSIDE
--- NOTE | 2018-08-21 12:43 | NUR ---
PATIENT RESTING QUIETLY WITH NO DISTRESS NOTED 6 FR EXOSEAL R/GROIN IS CDI
--- NOTE | 2018-08-21 13:02 | NUR ---
6 FR EXOSEAL R/GROIN IS CDI WITH PATIENT RESTING QUIELTY NO DISTRESS NOTED. AT BEDSIDE
--- NOTE | 2018-08-21 13:24 | NUR ---
REPOSITIONED TO HOB UP 30 FOR COMFORT. 6 FR EXOSEAL R/GROIN IS CDI AND PATIENT DENIED CHEST PAIN. SANDWICH AND SODA WITH TO ASSIST
--- NOTE | 2018-08-21 14:05 | NUR ---
VERBAL AND WRITTEN DISCHARGE GONE OVER WITH PATIENT AND FAMILY. 6 FR EXOSEAL R/GROIN IS CDI. PIV REMOVED WITH DRESSING APPLIED PATIENT UP TO GET DRESSED FOR DISCHARGE HOME NO DISTRESS NOTED
--- NOTE | 2018-08-21 14:17 | NUR ---
PATIENT LEFT VIA WC TO PARKING FOR TRANSPORT HOME CHEST PAIN IS DENIED AND 6 FR EXOSEAL R/GROIN IS CDI
== END | disposition home or self-care (01) ==
LOC: D.CATH 08:03
PROVIDERS: ATTEND Internal Medicine Interventional Cardiology
DX: I25.119 Atherosclerotic heart disease of native coronary artery with unspecified angina pectoris (principal); Z01.812 Encounter for preprocedural laboratory examination
CPT/HCPCS: 93458; C9600; C9601

== ENCOUNTER 2018-08-29 09:08 | Outpatient (CLI) | payer MEDICARE ==
[~2018-08-29] VITALS: Ht 162.6 cm; Wt 69.1 kg
--- NOTE | ~2018-08-29 | HEMODYNAMI ---
PATIENT:CLYDE ANDERSON MEDICAL RECORD: [id number] : 39 LOCATION:[facility] ADMISSION DATE: 08/29/18 Generatedon:08/29/201811:09 Patient name: CLYDE ANDERSON Patient #: [id number] SSN: [id number] : 1935 Date of study: 08/29/2018 Page: Of Hemodynamic Procedure Report Patient Data Patient Demographics Procedure consent was obtained First Name: CLYDE Gender: Female Last Name: JUSTIN : 1935 [facility] Initial: ADELA Age: 83 year(s) Patient #: [id number] Race: SSN: [id number] Additional ID: [id number] Contact details Address: [address] [place] [address] [place] State: [place] City: [place] Zip code: [address] Past Medical History Allergies Allergen Reaction Date Comments Reported Amoxicillin 08/21/2018 Statins 08/21/2018 Other allergy 08/21/2018 amiodorone, ambien, digoxin, lipitor, simvastatin, palgic d Admission Admission Data Admission Date: 08/29/2018 Admission Time: 9:08 Procedure Procedure Types Cath Procedure Diagnostic Procedure FFR/IVUS Intra-Coronary IVUS Initial PCI Procedure Coronary Stent Coronary Stent Initial Procedure Description Procedure Date Procedure Date: 08/29/2018 Procedure Start Time: 10:52 Procedure End Time: 11:07 Procedure Staff Name Function Jostin Rosas MD Performing Physician Brigido Miramontes RT Monitor Axel Tyson RN Nurse Fifi Pinto RT Scrub Procedure Data Cath Procedure Fluoroscopy Diagnostic fluoroscopy Total fluoroscopy Time: 1.9 time: 1.9 min min Diagnostic fluoroscopy Total fluoroscopy dose: 78 dose: 78 mGy mGy Contrast Material Contrast Material Type Amount (ml) Isovue 300 34 Entry Location Entry Primary Successful Side Size Upsize Upsize Entry Closure Succes sful Closure Location (Fr) 1 (Fr) 2 (Fr) Remarks Device Remarks Femoral Left 6 Fr Exoseal artery Short Estimated blood loss: 10 ml Procedure Complications No complications Procedure Medications Medication Administration Route Dosage Oxygen etCO2 Nasal cannula 2 l/min Heparin Flush Bag added to field 2 bags (1000units/500ml NS) 0.9% NaCl I.V. 100 ml/hr Lidocaine 2% added to field 20 Fentanyl I.V. 50 mcg Versed I.V. 1 mg Heparin Bolus I.V. 4000 units Fentanyl I.V. 50 mcg Versed I.V. 1 mg Hemodynamics Rest Heart Rate: 70 (bpm) Pressure Samples Time Site Value (mmHg) Purpose Heart Use Rate(bpm) 10:54 AO 93/45(62) Snapshot 70 Snapshots Pre Cath Intra NCS Post Cath Vital Signs Time Heart Resp SPO2 etCO2 NIBP (mmHg) Rhythm Pain Sedation Rate (ipm) (%) (mmHg) Status Level (bpm) 10:38:06 73 17 97 0 126/74(99) NSR 0 (11) 10(A) , No pain 10:42:22 69 17 97 0 117/62(93) NSR 0 (11) 10(A) , No pain 10:46:39 69 17 97 0 118/67(96) NSR 0 (11) 10(A) , No pain 10:50:54 69 16 97 0 126/67(101) NSR 0 (11) 10(A) , No pain 10:55:09 69 16 96 0 92/55(75) NSR 0 (11) 9(A) , No pain 10:59:16 69 16 96 0 106/68(85) NSR 0 (11) 9(A) , No pain 11:03:30 69 17 97 0 107/66(88) NSR 0 (11) 9(A) , No pain 11:07:40 69 9 98 0 119/70(99) NSR 0 (11) 9(A) , No pain Medications Time Medication Route Dose Verified Delivered Reason Notes Effectiveness by by 10:44:52 Oxygen etCO2 2 Jostin Reyna Per physician Nasal l/min Ralph Tyson RN cannula 10:45:00 Heparin Flush added 2 Jostin Reyna used for Bag to bags Ralph Tyson education associate (1000units/500ml field NS) 10:45:11 0.9% NaCl I.V. 100 Jostin Reyna used for ml/hr Ralph Tyson RN procedure 10:45:20 Lidocaine 2% added 20ml Jostin Reyna used for to vial Ralph Tyson RN procedure field 10:51:52 Fentanyl I.V. 50 Jostin Reyna for sedation mcg Ralph Tyson RN 10:52:00 Versed I.V. 1 mg Jostin Reyna for sedation Ralph Tyson RN 10:53:37 Heparin Bolus I.V. 4000 Jostin Reyna for units Ralph Tyson RN anticoagulation 10:57:08 Fentanyl I.V. 50 Jostin Reyna for sedation mcg Ralph Tyson RN 10:57:15 Versed I.V. 1 mg Jostin Reyna for sedation Ralph Tyson RN Procedure Log Time Note 10:17:34 Time tracking: Regular hours (M-F 7:00 - 5:00) 10:17:38 Plan of Care:Hemodynamics will remain stable., Cardiac rhythm will remain stable., Comfort level will be maintained., Respiratory function will remain adequate., Patient/ family verbilizes understanding of procedure., Procedure tolerated without complication., Recovers from procedure without complications.. 10:20:26 Axel Tyson RN sent for patient. Start room use. 10:31:26 Patient received from Pre/Post Procedure Room to CCL 3 Alert and oriented. Tansferred to table in Supine position. 10:31:27 Warm blankets applied, and radha hugger turned on for patient comfort. 10:31:27 Correct patient and procedure confirmed by team. 10:31:28 Signed procedure consent form obtained from patient. 10:31:29 ECG and BP/O2 sat monitors applied to patient. 10:31:30 Full Disclosure recording started 10:37:00 Vital chart was started 10:44:52 Oxygen 2 l/min etCO2 Nasal cannula was administered by Axel Tyson RN; Per physician; 10:45:00 Heparin Flush Bag (1000units/500ml NS) 2 bags added to field was administered by Axel Tyson RN; used for procedure; 10:45:11 0.9% NaCl 100 ml/hr I.V. was administered by Axel Tyson RN; used for procedure; 10:45:20 Lidocaine 2% 20ml vial added to field was administered by Axel Tyson RN; used for procedure; 10:48:56 Baseline sample Acquired. 10:48:59 Rhythm: paced 10:49:08 H&P Date Dictated: 08/29/2018 New H&P dictated by physician.. 10:49:09 Pre-procedure instructions explained to patient. 10:49:09 Pre-op teaching completed and patient verbalized understanding. 10:49:11 Family in patients room. 10:49:13 Patient NPO since Midnight. 10:49:14 Is the patient allergic to Iodine/contrast media? No. 10:49:18 Is patient on blood thinner?Yes 10:49:21 ACC The patient was administered the following blood thiners within the last 24 hours: ACCPlavix 10:49:31 Patient diabetic? No. 10:49:34 Previous problem with sedation/anesthesia? No ? 10:49:36 Snore? No 10:49:37 Sleep apnea? No 10:49:38 Deviated septum? No 10:49:38 Opens mouth fully? Yes 10:49:39 Sticks out tongue? Yes 10:49:40 Airway obstruction? No ? 10:49:44 Dentures? Yes out 10:49:48 Pre procedure: left dorsailis pedis pulse 1+ Palpable, but thready & weak; easily obliterated 10:49:55 Patient pain scale 0/10 ?. 10:49:59 IV patent on arrival in left forearm with 0.9% NaCl at O. 10:50:01 Lab results completed and on chart. 10:50:03 Left groin area was prepped with chlora-prep and draped in sterile fashion 10:50:04 Alarms reviewed by R. N. 10:50:05 Sharps counted by scrub and verified by R.N. 10:50:06 --------ALL STOP TIME OUT------ 10:50:06 Final Timeout: patient, procedure, and site verified with staff and physician. All members of the team are in agreement. 10:50:08 Left groin site verified by team. 10:50:11 Maximum allowable Isovue 300 dose 300ml. Physician notified. (300ml for normal creatinines. For patients with creatinine of 1.7 or higher multiply weight(kg) x 5 divided by creatinine.) 10:50:14 Fire Safety Assessment: A--An alcohol-based skin anteseptic being used preoperatively., C--Open oxygen or nitrous oxide is being used., D--An ESU, laser, or fiber-optic light is being used. 10:50:16 Physical assessment completed. ASA score P 2 - A patient with mild systemic disease as per Jostin Rosas MD. 10:50:19 Sedation plan: IV Moderate Sedation Medication:Versed, Fentanyl 10:51:52 Fentanyl 50 mcg I.V. was administered by Axel Tyson RN; for sedation; 10:52:00 Versed 1 mg I.V. was administered by Axel Tyson RN; for sedation; 10:52:08 Use device set Radial Dx or PCI 10:52:11 Use device set TAUTH PCI 10:52:14 Procedure started. 10:52:20 Local anesthetic to left femerol artery with Lidocaine 2% by Jostin Rosas MD.INITIAL ACCESS ONLY 10:52:21 Zero performed for pressure channel P1 10:52:24 Zero performed for pressure channel P1 10:52:26 Zero performed for pressure channel P1 10:52:31 Tegaderm 4 x 4 (1626W) opened to sterile field. 10:52:33 ACIST Hand Control (31300) opened to sterile field. 10:52:33 ACIST Manifold (74334) opened to sterile field. 10:52:35 ACIST Syringe (19625) opened to sterile field. 10:52:36 Medline Cath Pack ([id number]) opened to sterile field. 10:52:36 Bag Decanter (2002S) opened to sterile field. 10:52:38 DIAGNOSTIC WIRE .035 260cm J wire (679408) opened to sterile field. 10:52:40 INFLATOR Merit BasixCompak (DW0423) opened to sterile field. 10:52:43 CHOICE PT Extra Support 182cm wire ([id number]) opened to sterile field. 10:52:46 SHEATH 6FR [place] (GQD804) opened to sterile field. 10:52:48 GUIDE 6FR XBLAD 3.5 catheter ([id number]) opened to sterile field. 10:53:07 A 6 Fr Short sheath was inserted into the Left Femoral artery 10:53:37 Heparin Bolus 4000 units I.V. was administered by Axel Tyson RN; for anticoagulation; 10:54:06 6 Fr XBLAD 3.5 guide catheter was inserted over the wire 10:55:23 CPTXS wire advanced. 10:55:32 [place] Eagleye IVUS Catheter (27788V) opened to sterile field. 10:56:06 Wire advanced across lesion. 10:57:08 Fentanyl 50 mcg I.V. was administered by Axel Tyson RN; for sedation; 10:57:15 Versed 1 mg I.V. was administered by Axel Tyson RN; for sedation; 10:57:19 IVUS catheter advanced over wire. 10:57:44 IVUS pass to LAD lesion performed. 10:58:10 IVUS catheter removed over wire. 10:59:51 Place stent Inflation Number: 1 A FRANK RX 3.0 x 15 stent ([id number]) was prepped and advanced across the Prox LAD. The stent was deployed at 17 JAZIEL for 0:10 (min:sec). 11:00:02 Stent catheter was removed intact over wire. 11:00:04 Wire removed. 11:00:04 Guide catheter removed. 11:00:32 EXOSEAL 6Fr (EX600) opened to sterile field. 11:00:45 Sheath removed intact; hemostasis achieved with Exoseal to the Left Femoral artery. 11:00:50 Procedure ended.(Physican Out) 11:05:03 Fluoroscopy time 01.90 minutes. 11:05:06 Flurop Dose total: 78 11:05:06 Fluoroscopy dose: 78 mGy 11:05:10 Contrast amount:Isovue 300 34ml. 11:05:24 Sharps counted by scrub and verified by R.N. 11:05:25 Insertion/operative site no bleeding no hematoma. 11:05:29 Post-op/insertion site Left Femoral artery dressed using a 4 x 4 and Tegaderm. 11:05:30 Post Procedure Pulses reassessed and unchanged 11:05:32 Post-procedure physical assessment completed. ASA score P 2 - A patient with mild systemic disease as per Jostin Rosas MD. 11:05:34 Post procedure rhythm: unchanged. 11:05:37 Estimated blood loss: 10 ml 11:05:38 Post procedure instruction explained to patient.Patient verbalizes understanding. 11:05:39 Patient needs reinforcement of post procedure teaching. 11:05:50 Procedure type changed to Cath procedure, Diagnostic procedure, FFR/IVUS, Intra-Coronary IVUS Initial, PCI procedure, Coronary Stent, Coronary Stent Initial 11:05:52 Procedure and supply charges have been captured, reviewed, submitted and are correct. 11:05:54 Procedure Complication : No complications 11:07:11 Vital chart was stopped 11:07:11 See physician's report for complete and final results. 11:07:13 Report given to Pre/Post Procedure Room. 11:07:15 Patient transfered to Pre/Post Procedure Room with Stretcher. 11:07:17 Procedure ended. 11:07:17 Full Disclosure recording stopped 11:08:56 End room use (Document Last) Intervention Summary Intervention Notes Time ActionType Lesion and Equipment Used Action# Pressure Duration Attributes 10:59:[address] stent Prox LAD FRANK RX 3.0 x 1 17 00:10 15 stent ([id number]) Device Usage Item Name Manufacture Quantity Catalog Number Hospital Part Current M inimal Lot# / Charge Number Stock Stock Serial# Code Tegaderm 4 x 4 3M 1 1626W [id number] 453513 158998 5 (1626W) ACIST Hand Acist 1 61039 589695 511113 930917 5 Control Medical (38465) Systems Inc ACIST Manifold Acist 1 21274 178176 456830 294827 5 (77158) Medical Systems Inc ACIST Syringe Acist 1 91869 947324 652686 141139 2 0 (34932) Medical Systems Inc Medline Cath Medline 1 [id number] 314206 81706 620092 5 Pack ([id number]) Bag Decanter Microtek 1 2001S 024855 33079 081473 5 (2001S) Medical Inc. DIAGNOSTIC St Sharad 1 876597 459568 266338 306275 3 0 WIRE .035 260cm J wire (630444) INFLATOR Merit Merit 1 SZ1741 220200 302725 477762 1 5 Snapwiz Medical (EA9759) CHOICE PT [place] 1 [id number] 441519 252980 306013 5 Extra Support Scientific 182cm wire ([id number]) SHEATH 6FR Terumo 1 EBK048 079365 342661 180293 4 0 [place] (MLI039) GUIDE 6FR Cardinal 1 [id number] 779063 914086 018910 1 0 XBLAD 3.5 Health catheter (53295765) [place] 1 [id number] 884627 745136 640849 8 [place] Eagleye IVUS Catheter (61160Q) FRANK RX 3.0 x Medtronic 1 [id number] 325878 9831069 320895 5 [id number] 15 stent ([id number]) EXOSEAL 6Fr Cardinal 1 EX600 996913 302802 421836 1 0 (EX600) Health Signature Audit Kirby Stage Time Signature Unsigned Intra-Procedure 08/29/2018 Brigido Miramontes 11:09:12 AM RT(R) Signatures Monitor : Brigido Miramontes RT Signature : Date : Time : [address] [id number] [place] [address]
[2018-08-29 09:53] VITALS: BP 126/73; Ht 162.6 cm; Wt 69.1 kg
[2018-08-29 10:12] LABS: BASOPHILS 0.2 % (0-2); EOSINOPHILS 5.7 % (0-7); HEMATOCRIT 39.6 % (36.0-48.0); HEMOGLOBIN 13.5 g/dL (12-16); IMMATURE GRANULOCYTES 0.2 % (0-5); LYMPHOCYTES 17.8 % (15-50); MCH 30.1 pg (26.0-34.0); MCHC 34.1 g/dL (31.0-37.0); MCV 88.4 fL (80.0-100.0); MEAN PLATELET VOLUME 9.2 fL (7.4-10.4); MONOCYTES 9.6 % (2-11); NEUTROPHILS 66.5 % (40-80); PLATELET COUNT 279 10x3/uL (130-400); RBC 4.48 10x6/uL (4.00-5.40); RDW 14.4 % (11.5-14.5); WBC 9.3 10x3/uL (4.8-10.8)
[2018-08-29 10:21] LABS: CALCIUM 9.2 mg/dL (8.5-10.1); CARBON DIOXIDE 28.8 mmol/L (21.0-32.0); CREATININE - SERUM 1.1 mg/dL (0.6-1.3); POTASSIUM - SERUM 3.8 mmol/L (3.5-5.1)
--- NOTE | 2018-08-29 11:30 | NUR ---
2L NC, NO RESP DISTRESS. LEFT GROIN 6F EXOSEAL CDI, NO BLEEDING OR HEMATOMA NOTED. NO C/O PAIN OR NAUSEA. VSS. FAMILY AT BEDSIDE, CALL LIGHT WITHIN REACH.
--- NOTE | 2018-08-29 12:00 | NUR ---
RESTING QUIETLY WITH EYES CLOSED. LEFT GROIN 6F EXOSEAL CDI, NO BLEEDING OR HEMATOMA NOTED. NO C/O AT THIS TIME. VSS. WILL CONTINUE TO MONITOR.
--- NOTE | 2018-08-29 12:15 | NUR ---
CONTINUES TO REST COMFORTABLY WITH NO C/O. LEFT GROIN 6F EXOSEAL CDI, NO BLEEDING OR HEMATOMA NOTED. DENIES ANY NEEDS. VSS. CALL LIGHT WITHIN REACH.
--- NOTE | 2018-08-29 14:05 | NUR ---
HOB ELEVATED 30 DEGREES. LEFT GROIN 6F EXOSEAL CDI, NO BLEEDING OR HEMATOMA NOTED. SIPPING ON DRINK AND EATING SANDWICH WITH NO C/O NAUSEA. VSS. WILL CONTINUE TO MONITOR CLOSELY.
--- NOTE | 2018-08-29 14:35 | NUR ---
LEFT PIV D/C'D WITH CATHETER INTACT, BAND AID TO SITE. UP TO BEDSIDE TO GET DRESSED. AMBULATED TO RESTROOM.
--- NOTE | 2018-08-29 14:48 | NUR ---
DISCHARGE INSTRUCTIONS GIVEN TO PT AND FAMILY, BOTH VERBALIZED UNDERSTANDING.
--- NOTE | 2018-08-29 15:00 | NUR ---
TAKEN OUT VIA WHEELCHAIR BY C[employer] MEDICAL MANAGEMENT TRAINER. LEFT FACILITY WITH FAMILY AND ALL PERSONAL BELONGINGS.
--- NOTE | 2018-08-31 15:12 | OP ---
PATIENT NAME: CLYDE ANDERSON MEDICAL RECORD: [id number] :37 LOCATION:[facility] ADMISSION DATE: SURGEON: WADE WOODWARD MD DATE OF OPERATION: 08/29/2018 PROCEDURES: 1. PTCA and stent, LAD. 2. Intravascular ultrasound of LAD. 3. Selective coronary angiography. INDICATION: Angina and coronary artery disease. PROCEDURE IN DETAIL: After informed consent was obtained with detailed description of risks and benefits as well as alternative therapies, the patient elected to proceed with angiogram and angioplasty. The left femoral area was prepped and draped in normal sterile fashion. The left femoral artery was cannulated via modified Seldinger technique with placement of 6-Andorran sheath. All catheters were exchanged through this sheath. FINDINGS: The left anterior descending has greater than 75% stenosis proximally, confirmed by intravascular ultrasound. This was addressed with a 3.0 x 15 mm Augie stent. Result was 0% residual stenosis. OVERALL IMPRESSION: Successful PTCA and stent of the LAD, going from 75% initial stenosis proximally to 0% residual. TRANSINT:[id number] Voice Confirmation ID: [id number] DOCUMENT ID: [id number] WADE WOODWARD MD at 1512 CC: [id number] DICTATION DATE: 08/29/18 1104 PSYCHIATRIC CLINICAL NURSE SPECIALIST: 08/29/18 1213 DEP CLI 08/29/18 [place] [id number] [place] [address]
--- NOTE | 2018-08-31 15:12 | HP ---
PATIENT: CLYDE DE JESUS MEDICAL RECORD: [id number] ACCOUNT: [id number] LOCATION:[facility] : 39 ADMISSION DATE: 08/29/18 PCP: LOLY CASILLAS MD HISTORY AND PHYSICAL EXAMINATION DIAGNOSES: 1. Angina. 2. Coronary artery disease. 3. Recent PTCA stent of the RCA with concomitant disease of LAD. 4. Hypertension. 5. Hyperlipidemia. HISTORY OF PRESENT ILLNESS: Mrs. De Jesus presents with anginal symptomatology, found to have 2-vessel coronary artery disease, underwent PTCA stent of the RCA, now brought back for PTCA stent of the LAD. PHYSICAL EXAMINATION: GENERAL APPEARANCE: Well-nourished, well-developed, appears stated age. Level of distress, comfortable. PSYCHIATRIC: Mental status, alert, normal affect. Orientation, oriented to time, place and person. EYES: Lids and conjunctiva, noninjected. No discharge, no pallor. ENT: Lips, teeth, gums, normal dentition. Oropharynx, no cyanosis, no pallor. NECK: Carotid arteries, bilateral normal upstroke, no bruits, no thrills. JUGULAR VEINS: No jugular venous pressure or distention. CERVICAL LYMPH NODES: Nontender, nonenlarged. THYROID: Not enlarged. Nontender. No nodules. LUNGS: Respiratory effort, unlabored. CHEST: Normal curvature. No thoracic deformity. No chest wall tenderness. Percussion, resonant. Auscultation, clear. No wheezes, no rales, no rhonchi. CARDIOVASCULAR: Precordial exam, nondisplaced. No heaves or pericardial thrills. Rate and rhythm, regular. Heart sounds, normal S1, normal S2. No S3, no gallop, no rub. Systolic murmur, not heard. Diastolic murmur, not heard. EXTREMITIES: No cyanosis, no edema. Peripheral pulses, full and equal in all extremities, except as noted. No bruits appreciated. ABDOMEN: Soft, nondistended. Normal aorta. No bruit. Nontender. No masses. Liver, nontender, no hepatomegaly. Spleen, nontender, no splenomegaly. MUSCULOSKELETAL: No joint tenderness. No joint swelling. No erythema. NEUROLOGICAL: Normal gait, normal strength, normal tone. SKIN: Warm and dry. OVERALL IMPRESSION: Anginal symptomatology with significant disease of the LAD. We will proceed with transcatheter revascularization of the LAD. TRANSINT:[id number] Voice Confirmation ID: [id number] DOCUMENT ID: [id number] HISTORY AND PHYSICAL [id number] CLYDE DE JESUS JEFFREY MD at 1512 CC: [id number] DICTATION DATE: 08/29/18 1013 BROKE HANDLER: 08/29/18 1032 DEP CLI 08/29/18 [place] [id number] [place] [address]
== END 2018-08-29 15:00 | disposition home or self-care (01) ==
LOC: D.CATH 09:08
PROVIDERS: ATTEND Internal Medicine Interventional Cardiology
DX: I25.119 Atherosclerotic heart disease of native coronary artery with unspecified angina pectoris (principal); I10 Essential (primary) hypertension; E78.5 Hyperlipidemia, unspecified; Z95.5 Presence of coronary angioplasty implant and graft; Z01.812 Encounter for preprocedural laboratory examination
CPT/HCPCS: 92978; C9600

== ENCOUNTER → 2018-12-11 10:14 | Outpatient (CLI) | payer MEDICARE ==
[2018-08-29 09:53] VITALS: BMI 26.1
--- NOTE | 2018-12-14 11:14 | EC ---
PATIENT:CLYDE ANDERSON DATE OF SERVICE: 12/11/18 SEX: F MEDICAL RECORD: [id number] DATE OF : 39 LOCATION:[facility] AGE OF PATIENT: 83 ADMISSION DATE: 12/11/18 REFERRING PHYSICIAN: INTERPRETING PHYSICIAN: WADE ROSAS MD ECHOCARDIOGRAM REPORT ECHO CHARGES 4 ECHO COMPLETE Date: 12/11/18 CLINICAL DIAGNOSIS: SOB/CLINE/CHF/CARDIOMYOPATHY/ A-FIB H/O CAD/PACEMAKER PLACEMENT ECHOCARDIOGRAPHIC MEASUREMENTS (adult normal given) AC root (d.<3.7cm) 3.5 cm LV Septum d (<1.2 cm> 1.3 cm Valve Excursion 1.6 cm LV Septum (systole) 2.2 cm Left Atria (s.<4.0cm> 4.3 cm LVPW d(<1.2cm) 1.3 cm RV (d.<2.3cm) 1.5 cm LVPW (sytole) 2.0 cm LV diastole(<5.6CM) 5.8 cm MV E-F(>70mm/sec) cm LV systole 4.1 cm LVOT Diameter 1.7 cm MV exc.(>10mm) cm Est.ejection fraction (50-75%) % DOPPLER: LVIT cm/sec A cm/sec E 171 cm/sec LA cm/sec RVSP 28.4 mmHg LVOT 80.0 cm/sec AOP1/2T m/s Asc. Ao 95.0 cm/sec RVOT 40.0 cm/sec RA cm/sec PA 77.0 cm/sec AV Gradient Peak 3.6 mmHg AV Mean 1.6 mmHg AV Area 1.9 cm MV Gradient Peak 13.2 mmHg MV Mean 4.2 mmHg MV Area cm COMMENTS: OP - HC Group Director: 1 AZEB CUENCA Tetryl Nitrator Operator: 1 Dr. Rosas TAPE# PACS Pericardial Effusion N DATE OF SERVICE: 12/11/2018 ECHOCARDIOGRAM FINDINGS: 1. Left ventricular chamber size is mildly dilated. Left ventricular systolic function is markedly reduced, overall ejection fraction 20%. 2. Left atrium is enlarged at 4.3 cm. Right atrium and right ventricular chamber sizes are within normal limits. ECHOCARDIOGRAM REPORT [id number] CLYDE ANDERSON 3. Valvular structures have normal structure and motion. 4. Doppler interrogation reveals moderate mitral regurgitation, trace tricuspid regurgitation, no other valvular insufficiency or stenosis. Pulmonary systolic pressure is normal estimated 28 mmHg. 5. No evidence of pericardial effusion or left ventricular thrombus. TRANSINT:[id number] Voice Confirmation ID: [id number] DOCUMENT ID: [id number] WADE ROSAS MD at 1114 CC: [id number] DICTATION DATE: 12/12/18 1007 SKIMMER SCOOP OPERATOR: 12/12/18 1013 [facility] CLI 12/11/18 [place] [id number]
== END | disposition home or self-care (01) ==
LOC: D.HCCARDIO 10:14
PROVIDERS: ATTEND Internal Medicine Interventional Cardiology
DX: I42.0 Dilated cardiomyopathy (principal)